=== PATIENT | female | born 1965 | race Caucasian/White ===

== ENCOUNTER 2016-11-02 07:28 | Day surgery (SDC) | payer OTHER ==
[2016-10-29 15:41] VITALS: BMI 31.6
[~2016-11-02 07:28] MED LIST: LACTATED RINGERS 1,000 ML IV SCH
[2016-11-02] MEDS ORDERED: LIDOCAINE 1% 20 ML VIAL (10MG/ML) FOR IV START INTRADERMA ONE (07:41)
[2016-11-02 07:43] VITALS: RESP 18; TEMP 97.7
[2016-11-02] MEDS ORDERED: MIDAZOLAM 2 MG/2 ML VIAL ONE (07:56)
[2016-11-02] MEDS ORDERED: fentaNYL (PF) 50 MCG/ML 2 ML AMP ONE (07:56)
[2016-11-02] MEDS ORDERED: DEXAMETHASONE SOD PHOS (MDV) 100 MG/10 ML VIAL ONE (07:56)
[2016-11-02] MEDS ORDERED: LIDOCAINE 2%-EPI 1:100,000 20 ML VIAL ONE (07:56)
[2016-11-02] MEDS ORDERED: IV FLUID CONTINUATION 1,000 ML IV ONE (09:03)
[2016-11-02 09:09] VITALS: PULSE 74
[2016-11-02 09:23] VITALS: BP 132/91
--- NOTE | 2016-11-02 10:01 | FL ---
Fluoroscopy INDICATION: Pain FINDINGS: Fluoroscopy time: 30 seconds. Images obtained: 7. IMPRESSIONS: 1. Documentation of fluoroscopy.
--- NOTE | 2016-11-02 10:23 | P.PCN ---
Date of Procedure: 11/02/16 Anesthesia: MAC Surgeon: Faisal Spicer Pathology: none sent Condition: stable Disposition: PACU Description of Procedure: PREOPERATIVE DIAGNOSIS: Cervical spondylosis without myelopathy and facet arthropathy. POSTOPERATIVE DIAGNOSIS: Cervical spondylosis without myelopathy and facet arthropathy. PROCEDURES: Radiofrequency thermocoagulation, C4, C5, C6 medial branch, with fluoroscopic guidance, right side. ANESTHESIA: Local with 1% lidocaine; IV sedation with fentanyl and Versed. EBL: Minimal PROCEDURE INDICATION: The patient with neck pain secondary to cervical arthropathy who had more than 50% relief of her pain with previous diagnostic cervical medial branch block. No use of blood thinners. PROCEDURE DESCRIPTION / TECHNIQUE: The patient was seen and identified in the preoperative area. Risks, benefits, complications, and alternatives were discussed with the patient (with risks including but not limited to bleeding, infection, nerve damage, incomplete pain relief, and allergic reactions to medications), the patient agreed to proceed with the procedure and signed the informed consent after all questions were answered. IV was started. Vital signs remained stable throughout the procedure. Patient was taken to the OR and time out was completed. The patient was placed in the prone position on the procedure table. A pillow was placed under the patients chest to increase the cervical interlaminar space. The cervical area was prepped and draped in the usual sterile fashion. Critical pause was taken. Vital signs were closely monitored during the procedure. Conscious sedation was used during the procedure to decrease patients anxiety. Using cross-table lateral fluoroscopy, the centroid of the trapezoid of C3, C4, C5, C6, and C7 were identified, marked, and localized with 1% lidocaine. Subsequently, a 20 gauge 100-mm radiofrequency cannula with a 5-mm active tip was advanced guided by fluoroscopy to the centroid of the trapezoid of C5, C6, and C7. Needle tip position was confirmed at the centroid of the trapezoids of C4, C5, and C6 with anteroposterior fluoroscopy on the right side. Each site then underwent sensory testing at 50 Hz and 0 to 1 volt and motor testing at 2 Hz and 0 to 3 volt with local stimulation, but no radicular symptoms down the arm. Thereafter C4, C5, and C6 sites underwent radiofrequency thermocoagulation at 80 degrees celsius for 90 seconds after injecting 0.5 ml of PF lidocaine 1% . After thermocoagulation, 1 ml of the block solution containing Kenalog 40 mg and 2 mL of preservative-free normal saline was injected at the C4, C5, and C6 levels after negative aspiration of CSF and blood and in the absence of paresthesias. Cannulas were retracted while injecting lidocaine 1% until the needle is out. Skin was cleansed and bandages were applied. COMPLICATIONS: No acute complications. COMMENTS: DISPOSITION / PLANS: The patient was placed in a supine position and transferred to the recovery area in a stable condition for observation and was discharged from the recovery room after meeting discharge criteria. Home discharge instructions given to the patient by the staff. The patient was reexamined prior to discharge. The patient will schedule a follow up in the clinic in 4 weeks to discuss efficacy of procedure and to plan for left-sided injections. I did give her a prescription for [place] 7.5/325 #90 as she noted that Percocet was not helping her at all.
== END 2016-11-02 09:35 | disposition home or self-care (01) ==
LOC: ORPAIN 07:28
PROVIDERS: ATTEND Anesthesiology
DX: G89.29 Other chronic pain (principal); M54.2 Cervicalgia; M47.812 Spondylosis without myelopathy or radiculopathy, cervical region; M46.92 Unspecified inflammatory spondylopathy, cervical region; Z79.891 Long term (current) use of opiate analgesic
CPT/HCPCS: 64633; 64634 ×2; J2250; J3010; J1100

== ENCOUNTER → 2016-11-30 | Outpatient (CLI) | payer OTHER ==
[2016-11-30 12:40] VITALS: BP 125/85; PULSE 95; RESP 18
--- NOTE | 2016-12-01 21:28 | P.PN ---
Subjective This is follow-up visit for this patient with a history of severe and chronic neck pain secondary to cervical spondylosis with facet arthropathy, we have done interventional pain management injection, diagnostic medial branch block cervical area on the right side, and it was successful then later on ,we did radiofrequency ablation of the medial branch cervical area, on the radiofrequency done a few weeks ago patient's report that she had severe neck pain on the right side of her neck and also she had severe left shoulder blade pain, she denies any motor or sensory deficit, she denies any change in the bowel movement or urination, he is able to use her upper extremity without problem, and is currently on pain medications 1-[place] 7.5/325 every 6 hours 2-Zanaflex 2 mg every 12 hours Patient denies any side effects of the medication, denies excessive drowsiness or sleepiness, denies suicidal ideation, and reports that the current pain medication is NOT helping To control the pain and improve activity of daily living Physical Examinations : 1-Constitutiona : Cooperative , not in acute distress . 2-HEENT : nech ; supple , no Lymphadenopathy , no Thyromegaly , normal thyroid size . eyes : no ptosis , no icterus, no photophobia . ENT : normal of hearing , normal oropharynx , no Thrush . 3- Respiratory : Chest clear to auscultations Bilaterally , no wheezing , no Rhonchi . 4- Cardiovascular : regular rate and rhythem , S1 , S2 , no S3 , no S4. 5- Gastrointestinal : abdomen soft no tenderness , bowel sounds positive all four quadrents , no organomegally . 6- Genitourinary : Defferred . 7- neurologic : Cranial nerve II to XII intact , no focal neurological deffecit . 8-psychatric : alert , oriented X 3 , appropriate affect , intact judgment and insight . 9-Lymphatic : no Lymphadenopathy . 10- musculoskeltal : exams of the cervical spine = motor strength normal bilateral upper extremities facet loading test cervical area positive. Multiple trigger point identified in the right sided cervical paravertebral muscles , and on the left shoulder blade area exams of the Lumber spine = motor strength lower extremities ,thigh and legs .5/5 Assessment and plan = Chronic neck pain secondary to cervical spondylosis status post radiofrequency ablation of the right-sided medial branch cervical area , Currently patient complaining of severe neck pain and left shoulder pain mostly myofascial in nature , the current pain medication is not helping To control her pain , patient could benefit from trigger point injection right-sided cervical paravertebral muscles and left shoulder blade area , And I will start patient on baclofen 10 mg twice a day , increase [place] to 10/325 every 6 hours dispensed 90 , [id number] Terry - diagnoses, prognosis, and treatment options including but not limited to physical therapy, surgical interventions, interventional therapies , and medication management including narcotics and adjuvant medication were discussed with the patients ,all The questions answered Objective - Vital Signs Vital signs: Vital Signs Temp Pulse 95 11/30/16 12:35 Resp 18 11/30/16 12:35 BP 125/85 11/30/16 12:35 Pulse Ox 94 L 11/30/16 12:35
== END | disposition home or self-care (01) ==
LOC: PNWHC3 12:27
PROVIDERS: ATTEND Specialist
DX: M47.892 Other spondylosis, cervical region (principal); M46.93 Unspecified inflammatory spondylopathy, cervicothoracic region; Z79.899 Other long term (current) drug therapy
CPT/HCPCS: 99211

== ENCOUNTER 2016-12-03 12:36 | Day surgery (SDC) | payer OTHER ==
[2016-12-01 11:45] VITALS: BMI 34.7
[2016-12-03 13:41] VITALS: RESP 18; TEMP 97.9
[2016-12-03] MEDS ORDERED: LIDOCAINE 1% 20 ML VIAL (10MG/ML) FOR IV START INTRADERMA ONE (13:48)
[2016-12-03] MEDS ORDERED: MIDAZOLAM 2 MG/2 ML VIAL ONE (14:11)
[2016-12-03] MEDS ORDERED: fentaNYL (PF) 50 MCG/ML 2 ML AMP ONE (14:11)
[2016-12-03] MEDS ORDERED: TRIAMCINOLONE ACETONIDE 40 MG/ML 1 ML VIAL ONE (14:11)
[2016-12-03] MEDS ORDERED: BUPIVACAINE (PF) 0.5% 30 ML VIAL ONE (14:11)
--- NOTE | 2016-12-03 14:25 | P.PCN ---
Date of Procedure: 12/03/16 Surgeon: Faisal Spicer Pathology: none sent Condition: stable Disposition: PACU Description of Procedure: PREOPERATIVE DIAGNOSIS: 1-myofascial pain syndrome POSTOPERATIVE DIAGNOSIS: 1-myofascial pain syndrome PROCEDURE 1. Trigger point injections (cervical paraspinal, thoracic paraspinal, rhomboid ) ANESTHESIA: Local with 1% lidocaine; IV sedation with Versed/fentanyl. EBL: Minimal PROCEDURE INDICATION: The patient with myofascial pain in the area of neck, upper back, and shoulder that has not responded to conservative therapy. Patient presents for trigger point injection today; no use of blood thinners. PROCEDURE DESCRIPTION / TECHNIQUE: The patient was seen and identified in the preoperative area. Risks, benefits, complications, and alternatives were discussed with the patient, including but not limited to bleeding, infection, nerve damage, allergic reactions to medications, and incomplete pain relief. The patient agreed to proceed with the procedure and signed the consent after all questions were answered. IV was started, and vital signs were stable. Trigger points were marked prior to entering the procedure room in the places where the patient had severe pain to muscle palpation. Patient was taken to the OR and time out was completed to confirm patient position, procedure, laterality of pain, and allergies. The patient was placed in the prone position on procedure table and a pillow was placed under the abdomen to reduce lumbar lordosis. The area over the relevant muscle (neck, upper back, and right shoulder) was prepped and draped in the usual sterile fashion. Vital signs were closely monitored during the procedure. Conscious sedation was used during the procedure to decrease patients anxiety. Each of the previously marked areas was then infiltrated with 1% plain lidocaine using a 25g 1.5" needle. After this, each point was entered with the same 25g needle and after a catch was felt, dry needling was performed. After negative aspiration at each point, 1 ml of a total of 9 ml (combination of 7 ml 0.5% bupivacaine and 80 mg Kenalog was injected in each area. Needle was withdrawn intact each time, skin was cleansed, and bandages were applied. COMPLICATIONS: None COMMENTS: None DISPOSITION / PLANS: The patient was placed in a supine position and transferred to the recovery area in a stable condition for observation. There was no evidence of lower extremity motor or sensory deficit after the procedure. Patient was discharged from the recovery room after meeting discharge criteria. Home discharge instructions were given to the patient by the staff. The patient was reexamined prior to discharge. The patient will schedule a follow up in the clinic in 4-6 weeks.
[2016-12-03] MEDS ORDERED: IV FLUID CONTINUATION 1,000 ML IV ONE (14:35)
[2016-12-03 14:50] VITALS: BP 134/78; PULSE 78
== END 2016-12-03 15:07 | disposition home or self-care (01) ==
LOC: ORPAIN 12:36
PROVIDERS: ATTEND Anesthesiology
DX: M79.1 Myalgia (principal); M54.2 Cervicalgia; M25.512 Pain in left shoulder; F41.9 Anxiety disorder, unspecified; Z79.891 Long term (current) use of opiate analgesic; Z79.899 Other long term (current) drug therapy
CPT/HCPCS: 20553; J2250; J3301; J3010

== ENCOUNTER → 2016-12-17 | Outpatient (CLI) | payer OTHER ==
--- NOTE | 2016-12-17 15:27 | US ---
EXAMINATION TYPE: US thyroid st tissue head/neck DATE OF EXAM: 12/17/2016 3:09 PM COMPARISON: NONE CLINICAL HISTORY: E04.1 Thyroid nodule. Previous bx of the right nodule at [facility], assess growth, not on meds GLAND SIZE: Right Lobe: 5.5 x 1.5 x 2.4 cm Overall Parenchyma: homogeneous Left Lobe: 5.7 x 1.5 x 2.0 cm Overall Parenchyma: homogeneous Isthmus Thickness: 0.7 cm NODULES RIGHT: # of nodules measured on right: 1 1. 2.2 X 1.9 x 2.2 cm complex solid nodule at the mid pole with well-defined margins; interrupted p eripheral calcification. This nodule is wider than tall and shows intranodular vascularity. Prior size: [employer] here LEFT: # of nodules measured on left: 1 1. 1.2 X 1.0 x 0.9 cm hypoechoic solid nodule at the lower pole with well-defined margins. This nod ule is wider than tall and shows intranodular vascularity. Prior size: [employer] here ISTHMUS: # of nodules measured in the isthmus: 0 Bilateral neck scanned, no abnormal lymphadenopathy noted. Bilateral nodules seen. IMPRESSION: Thyroid nodularity as noted.
== END | disposition home or self-care (01) ==
LOC: RADUSWWP 14:50
PROVIDERS: ATTEND Otolaryngology
DX: E04.2 Nontoxic multinodular goiter (principal)
CPT/HCPCS: 76536

== ENCOUNTER → 2016-12-22 | Outpatient (CLI) | payer OTHER | END | disposition home or self-care (01) | LOC: LABWHC1 15:01 | PROVIDERS: ATTEND Otolaryngology | DX: E06.9 Thyroiditis, unspecified (principal) | CPT/HCPCS: 36415; 82306; 83970; 84439; 84443; 86376 ==

== ENCOUNTER → 2017-01-26 | Outpatient (CLI) | payer OTHER ==
[2017-01-26 12:54] VITALS: BP 142/92; PULSE 100; RESP 18; TEMP 99
--- NOTE | 2017-01-27 12:17 | P.CONS ---
History of Present Illness - Reason for Consult Consult date: 01/26/17 - History of Present Illness This is follow-up visit for this 51 years old female with a chronic history of severe neck pain diagnosed with cervical spondylosis, and cervical herniated disc disease, patient had diagnostic medial branch block which was successful and he tolerated the radiofrequency ablation of the medial branch cervical area , she continues to have severe neck pain, and currently she is complaining of increased numbness and tingling sensation, and also she had left side foot numbness and burning sensation, and also severe numbness and tingling sensation in her right upper extremity, she had no motor or sensory deficit, he had no change in the bowel movements or urination, no fever or night sweats Past Medical History Past Medical History: No Reported History, Osteoarthritis (OA) Additional Past Medical History / Comment(s): mass/cyst on thyroid, bone spurs neck History of Any Multi-Drug Resistant Organisms: None Reported Past Surgical History: Hysterectomy, Orthopedic Surgery Additional Past Surgical History / Comment(s): uterine ablation, colitis, neck surgery 09/2015 for bulging disc., lamenectomy, disc disease lower back, colonoscopy, bladder mesh sling. Thyroid mass removed from the left, pain procedures. Past Anesthesia/Blood Transfusion Reactions: No Reported Reaction Past Psychological History: Anxiety, Depression Smoking Status: Former smoker Past Alcohol Use History: None Reported Past Drug Use History: None Reported - Past Family History Father Family Medical History: Coronary Artery Disease (CAD), Myocardial Infarction ([place] ) Mother Family Medical History: Cancer Additional Family Medical History / Comment(s): Breast CA Medications and Allergies Home Medications Medication Instructions Recorded Confirmed Type DULoxetine HCL [Cymbalta] 60 mg PO HS 08/19/15 01/26/17 History Oxybutynin Chloride [Ditropan XL] 10 mg PO TID 08/19/15 01/26/17 History Ibuprofen [Motrin] 800 mg PO TID PRN 05/08/16 01/26/17 History ARIPiprazole [Abilify] 2 mg PO QAM 07/13/16 01/26/17 History ALPRAZolam [Xanax] 1 mg PO TID 10/05/16 01/26/17 History Methylphenidate HCl [Ritalin] 1 tab PO BID 11/30/16 01/26/17 History Sulfamethoxazole/Trimethoprim 1 tab PO BID 01/26/17 01/26/17 History [Bactrim SS 400-80 mg] Allergies Allergy/AdvReac Type Severity Reaction Status Date / Time No Known Allergies Allergy Verified 01/26/17 12:39 Physical Exam Vitals: Vital Signs Temp Pulse Resp BP 01/26/17 12:45 99 F 100 18 142/92 Physical Examinations : 1-Constitutiona : Cooperative , not in acute distress . 2-HEENT : nech ; supple , no Lymphadenopathy , no Thyromegaly , normal thyroid size . eyes : no ptosis , no icterus, no photophobia . ENT : normal of hearing , normal oropharynx , no Thrush . 3- Respiratory : Chest clear to auscultations Bilaterally , no wheezing , no Rhonchi . 4- Cardiovascular : regular rate and rhythem , S1 , S2 , no S3 , no S4. 5- Gastrointestinal : abdomen soft no tenderness , bowel sounds positive all four quadrents , no organomegally . 6- Genitourinary : Defferred . 7- neurologic : Cranial nerve II to XII intact , no focal neurological deffecit . 8-psychatric : alert , oriented X 3 , appropriate affect , intact judgment and insight . 9-Lymphatic : no Lymphadenopathy . 10- musculoskeltal : exams of the cervical spine = normal motor stregnth in the deltoid and biceps, normal motor stregnth biceps and the wrist extensors (C6) normal motor stregnth in the triceps muscle . deep normal at Brachioradialis , . positive cervical facet loading test . exams of the Lumber spine = normal moter stegnth lower extremities ,thigh and legs .5/5 deep tendon reflexes : normal Knee Jerk , normal ankle Jerk . positive lumber facet Loading Test strait leg raising test positive at 30 degree , RT ,LT , Fabere test positive RT and positive LT . Results Labs: MRI of the cervical spine= right C6 7 herniated disc, C5 6 bulging disc disease and multilevel cervical facet arthropathy. MRI of the lumbar spine = L4-L5 canal stenosis and multi-level facet arthropathy Assessment and Plan Plan: Assessment and plan = - Chronic low back pain secondary to lumbar degenerative disc disease , lumbar spondylosis with facet arthropathy without myelopathy , -Chronic neck pain secondary to cervical herniated disc disease , cervical spondylosis with cervical facet arthropathy without myelopathy . -chronic and current use of high-risk medication (Opioids). -medication refile = I will decrease the dose of [place] from 10/325 to 7.5/325 as per patient's request because she is concerned about addiction/tolerance to opioid l. Patient benefit from baclofen 5 mg 3 times a day, and from Neurontin 200 mg daily at bedtime and 100 mg every morning And patient also given referral for neurosurgery evaluation, for possible surgical intervention on her cervical spine Patient will follow up with the pain clinic in 2-3 months Time with Patient: Less than 30
== END | disposition home or self-care (01) ==
LOC: PNWHC3 12:16
PROVIDERS: ATTEND Specialist
DX: M50.10 Cervical disc disorder with radiculopathy, unspecified cervical region (principal); M47.22 Other spondylosis with radiculopathy, cervical region; M47.816 Spondylosis without myelopathy or radiculopathy, lumbar region; M51.36 Other intervertebral disc degeneration, lumbar region; M46.82 Other specified inflammatory spondylopathies, cervical region; M46.86 Other specified inflammatory spondylopathies, lumbar region
CPT/HCPCS: 99211

== ENCOUNTER → 2017-04-14 | Outpatient (CLI) | payer OTHER ==
[2017-04-14 12:47] VITALS: BP 131/90; PULSE 101; RESP 16; TEMP 98.7
--- NOTE | 2017-04-14 13:13 | P.PN ---
Progress Note - Text Patient returns for followup for chronic neck and back pain with radiation to RUE and LLE, respectively. Patient continues on [place] 7.5 mg po TID for pain with good relief; she got new MRIs and saw Dr. Acosta at [facility] who says she is not a candidate for neck surgery. Patient denies adverse drug effects from medications. Today, pt denies new-onset weakness, bowel/bladder incontinence, or any other signs or symptoms of cauda equina syndrome. There are no signs of acute intoxication, and no indications of medication diversion or overuse. In addition to above, 13-point review of systems is also negative for chest pain , shortness of breath, changes in vision, changes in hearing, new onset weakness , abdominal pain, diarrhea, extreme fatigue, malaise, fever, skin changes, homicidal or suicidal ideation, or bowel or bladder incontinence. Vital Signs: Reviewed in EMR Gen: WDWN, AAOx3, NAD HEENT: NCAT, EOMI, hearing grossly normal Pulm: resp unlabored Abd: soft, NT, ND Neck: supple, trachea midline, well healed scars posteriorly ROM in flexion cervical spine: reduced ROM in extension cervical spine: reduced Cervical paravertebral tenderness: ++ bilateral Cervical Facet tenderness: bilateral Spurling's: negative Facet loading: + bilateral SI joint tenderness: + Conrado's test: neg bilaterally Straight leg raise: neg Lower extremity: decreased ROM dorsiflexion/plantarflexion strength, hip flexion/extension, and knee flexion/extension secondary to pain Neuro: CN II-XII grossly intact, muscle strength lower extremities PRESERVED Imaging: Reviewed in EMR Assessment: 1. postlaminectomy syndrome, lumbar and cervical 2. cervical spondylosis without myelopathy 3. thoracic spondylosis without myelopathy Plan: 1. Explanation: Opioid and psychological risk scores were reviewed. Diagnoses , prognoses, and multiple treatment options including but not limited to physical therapy, interventional therapies, adjuvant medical therapies, narcotic medication therapies, and surgery were discussed with the patient and all questions were answered to the patient's satisfaction. 2. Opioid agreement: Patient has previously signed narcotic agreement, and was orally counseled to not overuse, abuse, divert, or cell medications, and to take them as prescribed by only 1 healthcare provider. The patient was also counseled to store opioid medications in a safe and preferably locked location. Patient was also counseled against driving while using narcotic medications and also to not use alcohol or any illicit or recreational drugs. The patient verbalized understanding that lack of compliance with any of the above and likely result in failure to renew narcotic prescriptions, possible discharge from the clinic, and possible legal ramifications thereafter if indicated. 3. Counseling: The patient was counseled extensively on SMOKING CESSATION, BODY MASS INDEX, EXERCISE. Specifically, the patient was instructed regarding the importance of smoking cessation, obesity, and exercise in the context of both chronic pain and overall health. 4. Procedures: cervical CATALINO ([id number]) 5. Consultations: None 6. Investigations: none 7. Medications: [place] prescribed (7.5 #90) with one refill, UDS today 8. Disposition: f/u for procedure as scheduled PQRS measures: 1-Patient's medications are documented in the chart. 2-Tobacco use is positive, counseling given 3-Patient has had a pneumococcal vaccine. 4-Advanced care planning discussed, patient unable to give. 5-Opioid contract signed with the patient. 6-Pain positive, follow-up visit or procedure scheduled 7-Patient's blood pressure measured and documented, and patient will follow up with the primary care due to hypertension. 8-Patient's weight was measured, and body mass index within the normal limits, and counseling was done. 9-Patient WAS NOT identified as an unhealthy alcohol user.
== END | disposition home or self-care (01) ==
LOC: PNWHC3 12:21
PROVIDERS: ATTEND Anesthesiology
DX: M47.812 Spondylosis without myelopathy or radiculopathy, cervical region (principal); M47.814 Spondylosis without myelopathy or radiculopathy, thoracic region; M96.1 Postlaminectomy syndrome, not elsewhere classified
CPT/HCPCS: 80307; G0480 ×3; G0463; 80346; 80356; 80364; 99211

== ENCOUNTER 2017-05-05 08:04 | Day surgery (SDC) | payer OTHER ==
[2017-04-29 14:38] VITALS: BMI 32.5
[2017-05-05 08:47] VITALS: RESP 18; TEMP 98.3
[2017-05-05] MEDS ORDERED: LIDOCAINE 1% 20 ML VIAL (10MG/ML) FOR IV START INTRADERMA ONE (08:56)
--- NOTE | 2017-05-05 09:30 | P.PCN ---
Date of Procedure: 05/05/17 Preoperative Diagnosis: Postoperative Diagnosis: Procedure(s) Performed: Implants: Surgeon: Faisal Spicer Pathology: none sent Condition: stable Disposition: PACU Indications for Procedure: Operative Findings: Description of Procedure: PREOPERATIVE DIAGNOSIS: Cervical radiculopathy. POSTOPERATIVE DIAGNOSIS: Cervical radiculopathy. PROCEDURE 1. Cervical epidural steroid injection under fluoroscopic guidance, C7-T1 level. 2. Cervical epidurogram. ANESTHESIA: Local anesthesia with 1% lidocaine and IV sedation with versed/ fentanyl. EBL: Minimal PROCEDURE INDICATION: The patient with neck pain and radiculitis with RUE numbness/tingling unresponsive to conservative treatment consents for procedure. No use of blood thinners; PRINCE #1 in series today. PROCEDURE DESCRIPTION / TECHNIQUE: The patient was seen and identified in the preoperative area. Risks, benefits, complications, and alternatives were discussed with the patient (including but not limited to incomplete pain relief, bleeding, infection, nerve damage, and allergies to medications), the patient agreed to proceed with the procedure and signed the consent after all questions were answered. Patient was taken to the OR and time out was completed to verify proper patient , position, laterality of pain, and allergies. Pt was placed in the prone position. A pillow was placed under the patients chest to increase the cervical interlaminar space. The cervical area was prepped and draped in the usual sterile fashion. Critical pause was taken. Vital signs were closely monitored during the procedure. Conscious sedation was used during the procedure to decrease patients anxiety. Using anterior-posterior fluoroscopy, the C7-T1 interlaminar space was identified and the skin over this site was marked and then infiltrated with 1% lidocaine subcutaneously in a paramedian fashion. Subsequently, a 20-gauge 3-1/2 -inch Tuohy epidural needle was inserted and advanced toward the epidural space by means of the loss of resistance technique and guided by AP and lateral fluoroscopy. After negative aspiration for blood or CSF and in the absence of paresthesias, the correct needle position in the epidural space was verified with the injection of 1 mL of the water soluble contrast dye [id number] and observing an excellent epidurogram with the epidural spread of the dye, after negative aspiration for blood and CSF and in the absence of paresthesias. Again after negative aspiration, a 4 ml mixture containing 20 mg of Decadron PF and 2 ml of preservative free Normal Saline solution was injected and a washout of epidurogram was seen. Needle was withdrawn intact, skin was cleansed, and bandages were applied. COMPLICATIONS: None COMMENTS: DISPOSITION / PLANS: The patient was placed in a supine position and transferred to the recovery area in a stable condition for observation. There was no evidence of upper extremity motor or sensory deficit after the procedure. Patient was discharged from the recovery room after meeting discharge criteria. Home discharge instructions were given to the patient by the staff. The patient was reexamined prior to discharge and there were no issues. The patient will schedule a repeat cervical CATALINO in 2-4 weeks.
[2017-05-05] MEDS ORDERED: IV FLUID CONTINUATION 1,000 ML IV ONE (09:35)
--- NOTE | 2017-05-05 09:42 | FL ---
EXAMINATION TYPE: FL guided pain mgmt statistic DATE OF EXAM: 05/05/2017 CLINICAL HISTORY: Neck pain. TECHNIQUE: Fluoroscopy. COMPARISON: None. FINDINGS: Fluoroscopic guidance was provided during pain relief procedure performed by Dr. Spicer . A total of 15 seconds of fluoroscopic time was utilized during the procedure and two spot images are acquired. Images acquired shows needle localization near the cervical thoracic junction without cont rast injection. IMPRESSION: As Above.
[2017-05-05 10:04] VITALS: BP 118/78; PULSE 81
== END 2017-05-05 10:13 | disposition home or self-care (01) ==
LOC: ORPAIN 08:04
PROVIDERS: ATTEND Anesthesiology
DX: G89.29 Other chronic pain (principal); M54.12 Radiculopathy, cervical region; M96.1 Postlaminectomy syndrome, not elsewhere classified; M47.812 Spondylosis without myelopathy or radiculopathy, cervical region; M47.814 Spondylosis without myelopathy or radiculopathy, thoracic region; Z79.891 Long term (current) use of opiate analgesic; Z72.0 Tobacco use
CPT/HCPCS: 62321; 99152; J1100; Q9965

== ENCOUNTER → 2017-06-09 | Outpatient (CLI) | payer OTHER ==
[2017-06-09 12:44] VITALS: BP 131/77; PULSE 93; RESP 16; TEMP 98.3
--- NOTE | 2017-06-10 08:56 | P.PN ---
Subjective This is follow-up visit for this patient with a history of severe and chronic neck pain with radiation to the upper extremity associated with numbness and tingling sensation secondary to cervical degenerative disc diseases , lumbar spondylosis with facet arthropathy, we have done interventional pain management injection,, cervical epidural steroid injections with good result but recently she had urinary tract infection and she has to reschedule her injection, she is currently on 1-[place] 7.5/325 every 6 hours 2-Zanaflex 4 mg every 8 hours 3-Neurontin 100 mg 3 times a day Patient denies any side effects of the medication, denies excessive drowsiness or sleepiness, denies suicidal ideation, and reports that the current pain medication is NOT helping To control the pain and improve activity of daily living Patient denies any motor or sensory deficit , patient denies any fever or night sweats, denies any change in the bowel movements or urination Physical Examinations : 1-Constitutiona : Cooperative , not in acute distress . 2-HEENT : nech ; supple , no Lymphadenopathy , no Thyromegaly , normal thyroid size . eyes : no ptosis , no icterus, no photophobia . ENT : normal of hearing , normal oropharynx , no Thrush . 3- Respiratory : Chest clear to auscultations Bilaterally , no wheezing , no Rhonchi . 4- Cardiovascular : regular rate and rhythem , S1 , S2 , no S3 , no S4. 5- Gastrointestinal : abdomen soft no tenderness , bowel sounds positive all four quadrents , no organomegally . 6- Genitourinary : Defferred . 7- neurologic : Cranial nerve II to XII intact , no focal neurological deffecit . 8-psychatric : alert , oriented X 3 , appropriate affect , intact judgment and insight . 9-Lymphatic : no Lymphadenopathy . 10- musculoskeltal : exams of the cervical spine = motor strength normal bilateral upper extremities facet loading test cervical area positive. exams of the Lumber spine = motor strength lower extremities ,thigh and legs .5/5 Assessment and plan = Chronic neck back pain secondary to cervical degenerative disc disease , cervical spondylosis with facet arthropathy without myelopathy , chronic and current use of high-risk medication (Opioids). The patient was counseled about risk of opioid use, psychological risk associated with opioids and was orally counseled to not overuse , divert,or sell dictations to take medications as prescribed only , and to restore medication in safe location , and the patient counseled against driving while using narcotic medications, and also not to use alcohol or any illicit recreational drugs, the patient's verbalized understanding that the lack of compliance will result in failure to renew narcotic prescription and possible discharge from the clinic - diagnoses, prognosis, and treatment options including but not limited to physical therapy, surgical interventions, interventional therapies , and medication management including narcotics and adjuvant medication were discussed with the patient and all the questions answered Patient will be given prescription refill for [place] 7.5/325 every 6 hours dispense , Zanaflex 4 mg 3 times a day and Neurontin 100 mg 3 times a day Patient will be rescheduled for cervical epidural steroid injections Objective - Vital Signs Vital signs: Vital Signs Temp 98.3 F 06/09/17 12:38 Pulse 93 06/09/17 12:38 Resp 16 06/09/17 12:38 BP 131/77 06/09/17 12:38 Pulse Ox 96 06/09/17 12:38 Intake & Output 06/09/17 06/10/17 06/10/17 18:59 06:59 18:59 Weight 90.718 kg
== END | disposition home or self-care (01) ==
LOC: PNWHC3 11:58
PROVIDERS: ATTEND Specialist
DX: M50.30 Other cervical disc degeneration, unspecified cervical region (principal); M47.812 Spondylosis without myelopathy or radiculopathy, cervical region; M46.82 Other specified inflammatory spondylopathies, cervical region
CPT/HCPCS: 99211

== ENCOUNTER 2017-06-17 11:24 | Day surgery (SDC) | payer OTHER ==
[2017-05-24 11:25] VITALS: BMI 33.3
[2017-06-17 12:21] VITALS: TEMP 98.1
[2017-06-17] MEDS ORDERED: LIDOCAINE 1% 20 ML VIAL (10MG/ML) FOR IV START INTRADERMA ONE (12:40)
--- NOTE | 2017-06-17 13:16 | P.PCN ---
Date of Procedure: 06/17/17 Preoperative Diagnosis: Postoperative Diagnosis: Procedure(s) Performed: . PROCEDURE 1. Cervical epidural steroid injection under fluoroscopic guidance, C7-T1 2. Cervical epidurogram. PREOPERATIVE DIAGNOSIS: 1- Cervical herniated Disc Diseases 2--cervical spondylosis with cervical Facet arthropathy without myelopathy POSTOPERATIVE DIAGNOSIS: : 1- Cervical herniated Disc Diseases , 2- Cervicl spondylosis with cervical Facet arthropathy without myelopathy ANESTHESIA: Local anesthesia with 1% lidocaine and IV sedation with Versed 2 mg and Fentanyl 100 mcg. EBL 0 PROCEDURE INDICATION: The patient with neck pain and radiculitis unresponsive to conservative treatment consents for procedure. PROCEDURE DESCRIPTION / TECHNIQUE: The patient was seen and identified in the preoperative area. Risks, benefits, complications, including but not limited to infections ,bleeding , allergic reactions to the medications ,and not complete pain releife, and alternatives were discussed with the patient, the patient agreed to proceed with the procedure and signed the consent. Patient was taken to the OR and time out was completed. The patient was placed in the prone position on the procedure table. A pillow was placed under the patients chest to increase the cervical interlaminar space. The cervical area was prepped and draped in the usual sterile fashion. Vital signs were closely monitored during the procedure. Conscious sedation was used during the procedure to decrease patients anxiety. Using anterior-posterior fluoroscopy, the C7-T1 interlaminar space was identified and the skin over this site was marked and then infiltrated with 1% lidocaine subcutaneously. Subsequently, a 20-gauge 3-1/2-inch Tuohy epidural needle was inserted and advanced toward the epidural space by means of the `` hanging-drop technique and guided by AP and lateral fluoroscopy. The correct needle position in the epidural space was verified with the injection of 2 mL of the water soluble contrast dye Isovue-180 and observing an excellent epidurogram with the epidural spread of the dye, after negative aspiration for blood and CSF and in the absence of paresthesias. Again after negative aspiration, mixture containing 20 mg Dexamethasone and 2 ml of preservative- free normal saline injected and a washout of epidurogram was seen. Needle was withdrawn intact, skin was cleansed, and bandages were applied. Complications= none. Disposition= patient was placed in supine position and transferred to the recovery room area in stable condition and there was no evidence of upper or lower extremity motor or sensory deficit after the procedure patient was discharged from recovery room after discharge criteria met and home discharge instructions was given by the staff and patient will follow with the pain clinic in 2-4 weeks Implants: Indications for Procedure: Operative Findings: Description of Procedure:
[2017-06-17] MEDS ORDERED: IV FLUID CONTINUATION 1,000 ML IV ONE (13:27)
[2017-06-17 13:31] VITALS: BP 123/77; PULSE 77; RESP 16
--- NOTE | 2017-06-17 13:48 | FL ---
EXAMINATION TYPE: FL guided pain mgmt statistic DATE OF EXAM: 06/17/2017 COMPARISON: NONE HISTORY: Neck pain TECHNIQUE: Fluoroscopy. FINDINGS/IMPRESSION: Fluoroscopic guidance was provided during cervical epidural steroid injection p erformed by Dr. Phan. A total of 7 seconds of fluoroscopic time was utilized during the procedure and 2 spot images was acquired.
== END 2017-06-17 13:47 | disposition home or self-care (01) ==
LOC: ORPAIN 11:24
PROVIDERS: ATTEND Specialist
DX: M50.20 Other cervical disc displacement, unspecified cervical region (principal); M47.812 Spondylosis without myelopathy or radiculopathy, cervical region; M46.92 Unspecified inflammatory spondylopathy, cervical region
CPT/HCPCS: 62321; 99152; J2250; J1100; Q9965; J3010

== ENCOUNTER → 2017-08-04 | Outpatient (CLI) | payer OTHER ==
[2017-08-04 13:52] VITALS: BP 134/93; PULSE 98; RESP 16; TEMP 98.5
--- NOTE | 2017-08-04 14:21 | P.PN ---
Subjective Progress Note Date: 08/04/17 This is follow-up visit for this patient with a history of severe and chronic neck pain diagnosed with cervical degenerative disc disease, cervical spondylosis with facet arthropathy, and failed back surgery syndrome cervical area ,we did interventional pain management injection, radiofrequency ablation of the medial branch cervical area, she is currently complaining of severe neck pain with radiation to the shoulder blade area patient currently on 1-[place] 7.5/325 every 6 hours 2-Zanaflex 4 mg every 8 hours 3-Neurontin 100 mg 3 times a day. 4-Motrin 800 mg 3 times a day. 5-Cymbalta 60 mg daily at bedtime Patient denies any side effects of the medication, denies excessive drowsiness or sleepiness, denies suicidal ideation, and reports that the current pain medication is NOT helping To control the pain and improve activity of daily living . The pain is constant and increases with any activity and interfere with her quality of life and ability to function and work , the dizziness is 8/ 10 increased to 10 over 10 with any activity, Patient denies any motor or sensory deficit, denies change in bowel movement or urination, patient denies any fever or night sweats and patient here for follow-up visit and medication refill Objective - Exam Physical Examinations : 1-Constitutiona : Cooperative , not in acute distress . 2-HEENT : nech ; supple , no Lymphadenopathy , normal thyroid size . eyes : no ptosis , no icterus, no photophobia . ENT : normal of hearing , normal oropharynx , no Thrush . 3- Respiratory : Chest clear to auscultations Bilaterally , no wheezing , no Rhonchi . 4- Cardiovascular : regular rate and rhythem , S1 , S2 , no S3 , no S4. 5- Gastrointestinal : abdomen soft no tenderness , bowel sounds positive all four quadrents , no organomegally . 6- Genitourinary : Defferred . 7- neurologic : Cranial nerve II to XII intact , no focal neurological deffecit . 8-psychatric : alert , oriented X 3 , appropriate affect , intact judgment and insight . 9-Lymphatic : no Lymphadenopathy . 10- musculoskeltal : cervical spine = motor stregnth in the deltoid and biceps, motor stregnth biceps and the wrist extensors (C6) . motor stregnth in the triceps muscle . deep tendon reflexes normal at the biceps , l normal at Brachioradialis normal at the triceps positive cervical facet loading test Multiple trigger point identified in the cervical paravertebral muscles of the right side more than the left. , Lumber spine = normal moter stegnth lower extremities ,thigh and legs .02/19 Assessment and Plan Plan: Assessment and plan= chronic low back pain secondary to cervical degenerative disc disease ,and cervical spondylosis with cervical facet arthropathy , failed back surgery syndrome and cervical area status post radiofrequency ablation of the medial branch cervical area, currently patient having myofascial pain syndrome cervical area chronic and current use of high-risk medication (opioids) Patient denies any side effects of the current pain medication and the current treatment/medication, and the patient to do activity of daily living , Diagnoses, prognosis, treatment options, including but not limited to physical therapy, medication management, interventional therapies, and surgery, were discussed with the patient All the questions answered Patient signed the narcotic agreement, and he was orally counseled, not to overuse, not to abuse, not to Divert , not tp sell pain medication, and to take it as prescribed only, Patient was counseled not to drive or operate heavy equipment while using narcotic medication, and advised not to use alcohol or any Illicit drugs while using the narcotis, the patient's verbalized understanding that lack of compliance with any of the above instructions and will likely to cause discharge from the pain service, not to renew his narcotic prescriptions Medication managements= patient will be given prescription refills for 1-discontinue [place], start patient on Percocet 7.5/325 every 6 hours 2-Neurontin 100 mg 3 times a day dispense 90 3-Zanaflex 4 mg every 8 hours dispense 90 4-Motrin 800 mg when necessary , patient taking Cymbalta prescription from the primary care 60 mg daily Interventional pain managemet = patient could benefit from trigger point injections cervical area Follow-up= 2 months UDS was done today
== END ==
LOC: PNWHC3 12:43
PROVIDERS: ATTEND Specialist
DX: M50.30 Other cervical disc degeneration, unspecified cervical region (principal); M47.812 Spondylosis without myelopathy or radiculopathy, cervical region; M46.82 Other specified inflammatory spondylopathies, cervical region; Z79.891 Long term (current) use of opiate analgesic; Z79.899 Other long term (current) drug therapy
CPT/HCPCS: 80307 ×2; G0480 ×2; G0463; 80346; 80364; 99211

== ENCOUNTER 2017-08-23 09:54 | Day surgery (SDC) | payer OTHER ==
[2017-08-17 14:57] VITALS: BMI 33.3
[2017-08-23 10:28] VITALS: RESP 16; TEMP 98.3
[2017-08-23] MEDS ORDERED: LIDOCAINE 1% 20 ML VIAL (10MG/ML) FOR IV START INTRADERMA ONE (10:32)
[2017-08-23 11:54] VITALS: BP 118/80; PULSE 88
[2017-08-23] MEDS ORDERED: IV FLUID CONTINUATION 1,000 ML IV ONE (12:08)
--- NOTE | 2017-08-23 22:05 | P.PCN ---
Date of Procedure: 08/23/17 Procedure(s) Performed: Preoperative diagnoses= 1-myofascial pain syndrome cervical thoracic and lumbar area. 2-cervical degenerative disc disease 3-cervical spondylosis Postoperative diagnoses= same as preoperative diagnosis. Procedure= Trigger point injections cervical 2 left cervical paravertebral muscles, 1 thoracic paravertebral muscles on the right side , and 2 in the lumbar paravertebral muscles on the Left side Anesthesia= conscious sedation with Versed 2 mg and fentanyl 100 micrograms and local infiltration with lidocaine 1% 4 ml Estimated blood loss=minimal. Procedure indication= the patient had a history of severe chronic neck mid back and low back pain diagnosed with myofascial pain syndrome unresponsive to conservative treatment. Procedure description= the patient was seen and identified in the preoperative holding area, risks and benefits and alternative of the procedure and possible complications discussed with the patient, and he agreed with the preceding, patient signed the consent, an IV was started, and vital signs were monitored and were stable throughout the procedure, patient was placed in the sitting position , procedure table , cervical thoracic and lumbosacral area was prepped and draped with a sterile fashion, vital signs were closely monitored during the procedure, then each trigger point injected with Marcaine 0.5% 2 mL using 25 -gauge needle, injections done after negative aspiration and there was no paresthesia during the injection , total of 5 trigger points injected, 2 on the left sided cervical paravertebral muscles 1 in the thoracic paravertebral muscle on the right side and 2 on the left side lumbar paravertebral muscles Patient tolerated the procedure well without any complication, The patient returned to supine position after the back was cleaned and a Band- Aid applied, the patient transported to recovery room in stable condition and he was monitored for 30 minutes before he was discharged home and then patient was reexamined before going home and patient was discharged in stable condition and patient will follow up with the pain clinic in a few weeks
== END 2017-08-23 12:33 | disposition home or self-care (01) ==
LOC: ORPAIN 09:54
PROVIDERS: ATTEND Specialist
DX: G89.29 Other chronic pain (principal); M79.1 Myalgia; M50.30 Other cervical disc degeneration, unspecified cervical region; M47.812 Spondylosis without myelopathy or radiculopathy, cervical region
CPT/HCPCS: 20553; J2250; J3301; J3010; 99152

== ENCOUNTER → 2017-09-13 | Outpatient (CLI) | payer OTHER ==
--- NOTE | 2017-09-13 11:24 | MM ---
Reason for exam: screening (asymptomatic). Last mammogram was performed 1 year and 1 month ago. History: Patient is postmenopausal. Benign ultrasound-guided core biopsy of the left breast, 2012. Benign cyst aspiration of both breasts, 2011. Physical Findings: A clinical breast exam by your physician is recommended on an annual basis and results should be correlated with mammographic findings. MG 3D Screening Mammo W/Cad Bilateral CC and MLO view(s) were taken. Prior study comparison: July 30, 2016, bilateral MG 3d diag mammo w/cad [facility]. April 12, 2015, mammogram, performed at [facility]. There are scattered fibroglandular densities. Finding: There is a stable 7 mm circumscribed lobulated mass located 4 cm from the nipple in the lower inner quadrant, anterior position of the right breast. Previous mammotome biopsy in the left breast. Focal asymmetry in the right breast, stable. No significant changes in finding since July 30, 2016 and April 12, 2015. ASSESSMENT: Benign, BI-RAD 2 RECOMMENDATION: Routine screening mammogram of both breasts in 1 year.
== END | disposition home or self-care (01) ==
LOC: RADMAMWWP 06:51
PROVIDERS: ATTEND Family Medicine
DX: Z12.31 Encounter for screening mammogram for malignant neoplasm of breast (principal)
CPT/HCPCS: 77063; G0202

== ENCOUNTER → 2017-11-23 | Outpatient (CLI) | payer OTHER ==
[2017-11-23 12:36] VITALS: BP 138/95; PULSE 102; RESP 18
--- NOTE | 2017-11-23 12:56 | P.PN ---
Progress Note - Text Progress Note Date: 11/23/17 This is a 52-year-old female with history of lumbar postlaminectomy pain syndrome and myofascial pain especially in the midthoracic area. The patient had trigger point injection previously which did help her significantly with her pain. She takes Percocet 7.5 mg over it does not help her as [place] used to and she wants to switch back to her [place] at this point. By physical exam she is alert oriented 3 no apparent distress she has tenderness in the thoracic paravertebral area bilaterally. She has well-healed scar from her previous lumbar surgery. I will schedule the patient to have trigger point injection in the thoracic paravertebral area and I will give her prescription for 2 months of [place] 7.5 mg 3 times a day with a total of 90 pills per month.
== END | disposition home or self-care (01) ==
LOC: PNWHC3 12:12
PROVIDERS: ATTEND Anesthesiology
DX: G89.29 Other chronic pain (principal); M96.1 Postlaminectomy syndrome, not elsewhere classified; M54.6 Pain in thoracic spine; M79.1 Myalgia; Z79.891 Long term (current) use of opiate analgesic; Z98.890 Other specified postprocedural states
CPT/HCPCS: 99211

== ENCOUNTER 2017-12-22 09:36 | Day surgery (SDC) | payer OTHER ==
[2017-12-20 11:54] VITALS: BMI 33.3
[~2017-12-22 09:36] MED LIST changes: +LACTATED RINGERS 1,000 ML IV ONE; -LACTATED RINGERS 1,000 ML IV SCH
[2017-12-22 10:26] VITALS: TEMP 97.6
[2017-12-22] MEDS ORDERED: IV FLUID CONTINUATION 1,000 ML IV ONE (10:49)
--- NOTE | 2017-12-22 10:55 | P.PCN ---
Date of Procedure: 12/22/17 Procedure(s) Performed: Preoperative diagnoses= 1-myofascial pain syndrome cervical and thoracic area. Postoperative diagnoses= same as preoperative diagnosis. Procedure= trigger point injections and cervical paravertebral muscles and thoracic paravertebral muscles ( total of 9 pounds injected ) 3 on the right side cervical paravertebral muscles, 3 on the right side thoracic paravertebral muscles , and 3 on the left side thoracic paravertebral muscles. Anesthesia= none. Estimated blood loss=none Procedure indication= the patient had a history of severe chronic upper back pain, and neck pain, diagnosed with myofascial pain syndrome unresponsive to conservative treatment., And she is here today to have trigger point injections Procedure description= the patient was seen and identified in the preoperative holding area, risks and benefits and alternative of the procedure and possible complications discussed with the patient, and he agreed with the preceding, patient signed the consent,, and vital signs were monitored and were stable throughout the procedure, patient was placed in the sitting position or table and the cervical and thoracic area was prepped and draped with a sterile fashion, vital signs were closely monitored during the procedures , and each of the trigger point that was marked in the preoperative holding area each one of them injected with a 2 ml of the mixture of Marcaine 0.5% 18 mL mixed with 40 mg of Kenalog, using 25-gauge needle, each of the trigger points mentioned above injected with 2 mg of the mixture after negative aspiration for heme or CSF and there was no paresthesia during the injection Patient tolerated the procedure well without any complication, The patient returned to supine position after the back was cleaned and a Band- Aid applied, the patient transported to recovery room in stable condition and he was monitored for 30 minutes before he was discharged home and then patient was reexamined before going home and patient was discharged in stable condition and patient will follow up with the pain clinic in a few weeks
[2017-12-22 10:59] VITALS: RESP 18
[2017-12-22 11:10] VITALS: BP 122/86; PULSE 89
== END 2017-12-22 11:30 | disposition home or self-care (01) ==
LOC: ORPAIN 09:36
PROVIDERS: ATTEND Specialist
DX: G89.29 Other chronic pain (principal); M79.1 Myalgia; M54.89 Other dorsalgia; M54.2 Cervicalgia
CPT/HCPCS: 20553; J3301

== ENCOUNTER → 2018-01-18 | Outpatient (CLI) | payer OTHER ==
[2018-01-18 12:18] VITALS: BP 129/93; PULSE 89; RESP 16; TEMP 98.7
--- NOTE | 2018-01-18 13:27 | P.PN ---
Subjective Progress Note Date: 01/18/18 This is 53 years old female with a chronic history of severe neck pain and mid back pain, diagnosed with cervical spondylosis, myofascial pain syndrome cervical and thoracic area, we have done radiofrequency ablation of the medial branch cervical area, and recently we have done trigger point injection for the thoracic and cervical area, patient continued to have severe localized mid back pain, pain is constant and increases with any activity, she tried physical therapy without any benefit, trigger point injection no benefit, she is using TENS unit without any benefit, she denies any motor or sensory deficit in the upper or lower extremities, she denies any fever or night sweats, she denies any change in bowel movement or urination, the intensity of the pain interfering with her quality of life and activity of daily livings, intensity of the pain is 7/10, and is not controlled with the pain medication, she continued to use the medication [place] 7.5/325 every 8 hours, Motrin 800 mg 3 times a day, Zanaflex 4 mg 3 times a day, Neurontin 1 mg 3 times a day Objective - Vital Signs Vital signs: Vital Signs Temp 98.7 F 01/18/18 12:11 Pulse 89 01/18/18 12:11 Resp 16 01/18/18 12:11 BP 129/93 01/18/18 12:11 Pulse Ox Intake & Output 01/17/18 01/18/18 01/18/18 18:59 06:59 18:59 Weight 90.718 kg - Exam Physical Examinations : 1-Constitutiona : Cooperative , not in acute distress . 2-HEENT : nech ; supple , no Lymphadenopathy , normal thyroid size . eyes : no ptosis , no icterus, no photophobia . ENT : normal of hearing , normal oropharynx , no Thrush . 3- Respiratory : Chest clear to auscultations Bilaterally , no wheezing , no Rhonchi . 4- Cardiovascular : regular rate and rhythem , S1 , S2 , no S3 , no S4. 5- Gastrointestinal : abdomen soft no tenderness , bowel sounds positive all four quadrents , no organomegally . 6- Genitourinary : Defferred . 7- neurologic : Cranial nerve II to XII intact , no focal neurological deffecit . 8-psychatric : alert , oriented X 3 , appropriate affect , intact judgment and insight . 9-Lymphatic : no Lymphadenopathy . 10- musculoskeltal : cervical spine = motor stregnth in the deltoid and biceps, motor stregnth biceps and the wrist extensors (C6) . motor stregnth in the triceps muscle . deep tendon reflexes normal at the biceps , normal at Brachioradialis , normal at the Triceps positive cervical facet loading test . Thoracic spine= positive facet loading test mid and lower thoracic area, torso rotation associated with severe pain , flexion and hyperextension of the thoracic spine associated with severe pain Lumber spine = normal moter stegnth lower extremities ,thigh and legs .02/19 Assessment and Plan Plan: Assessment and plan= chronic neck pain secondary to cervical spondylosis, improved after radiofrequency Mid back pain secondary to thoracic spondylosis, myofascial pain syndrome thoracic and cervical area chronic and current use of high-risk medication (opioids) Patient denies any side effects of the current pain medication and the current treatment/medication ML and the patient to do activity of daily living , Diagnoses, prognosis, treatment options, including but not limited to physical therapy, medication management, interventional therapies, and surgery, were discussed with the patient All the questions answered Patient signed the narcotic agreement, and he was orally counseled, not to overuse, not to abuse, not to Divert , not tp sell pain medication, and to take it as prescribed only, Patient was counseled not to drive or operate heavy equipment while using narcotic medication, and advised not to use alcohol or any Illicit drugs while using the narcotis, the patient's verbalized understanding that lack of compliance with any of the above instructions and will likely to cause discharge from the pain service, not to renew his narcotic prescriptions Medication managements= patient will be given prescription refills for [place] 7.5/325 every, dispense 90, Motrin 800 mg every 8 hours dispense 90, Zanaflex 4 mg every 8 hours dispense 90, discontinue Neurontin patient had no benefit from it, we'll order MRI of the thoracic spine to evaluate the etiology patient symptoms goes with discogenic component versus facetogenic component, ,
== END | disposition home or self-care (01) ==
LOC: PNWHC3 11:57
PROVIDERS: ATTEND Specialist
DX: G89.29 Other chronic pain (principal); M54.9 Dorsalgia, unspecified; M47.812 Spondylosis without myelopathy or radiculopathy, cervical region; M47.814 Spondylosis without myelopathy or radiculopathy, thoracic region; M79.1 Myalgia; Z79.1 Long term (current) use of non-steroidal anti-inflammatories (NSAID); Z79.891 Long term (current) use of opiate analgesic; Z79.899 Other long term (current) drug therapy
CPT/HCPCS: 99211

== ENCOUNTER → 2018-02-15 | Outpatient (CLI) | payer MEDICARE, OTHER ==
[2018-02-15 14:29] VITALS: BP 127/96; PULSE 96; RESP 16
--- NOTE | 2018-02-15 19:48 | P.PAINPG ---
Subjective Progress Note Date: 02/15/18 This is 53 years old female with a chronic history of severe neck pain and mid back pain, diagnosed with cervical spondylosis, myofascial pain syndrome cervical and thoracic area, we have done radiofrequency ablation of the medial branch cervical area, and recently we have done trigger point injection for the thoracic and cervical area, patient continued to have severe localized mid back pain, pain is constant and increases with any activity, she tried physical therapy without any benefit, trigger point injection no benefit, she is using TENS unit without any benefit, she denies any motor or sensory deficit in the upper or lower extremities, she denies any fever or night sweats, she denies any change in bowel movement or urination, the intensity of the pain interfering with her quality of life and activity of daily livings, intensity of the pain is 7/10, and is not controlled with the pain medication, she continued to use the medication Brick 7.5/325 every 8 hours, Motrin 800 mg 3 times a day, Zanaflex 4 mg 3 times a day, Neurontin 1 mg 3 times a day Objective - Vital Signs Vital signs: Vital Signs Temp Pulse 96 02/15/18 14:22 Resp 16 02/15/18 14:22 BP 127/96 02/15/18 14:22 Pulse Ox Intake & Output 02/15/18 02/15/18 02/16/18 06:59 18:59 06:59 Weight 90.718 kg - Exam Physical Examinations : 1-Constitutiona : Cooperative , not in acute distress . 2-HEENT : nech ; supple , no Lymphadenopathy , normal thyroid size . eyes : no ptosis , no icterus, no photophobia . ENT : normal of hearing , normal oropharynx , no Thrush . 3- Respiratory : Chest clear to auscultations Bilaterally , no wheezing , no Rhonchi . 4- Cardiovascular : regular rate and rhythem , S1 , S2 , no S3 , no S4. 5- Gastrointestinal : abdomen soft no tenderness , bowel sounds positive all four quadrents , no organomegally . 6- Genitourinary : Defferred . 7- neurologic : Cranial nerve II to XII intact , no focal neurological deffecit . 8-psychatric : alert , oriented X 3 , appropriate affect , intact judgment and insight . 9-Lymphatic : no Lymphadenopathy . 10- musculoskeltal : cervical spine = motor stregnth in the deltoid and biceps, motor stregnth biceps and the wrist extensors (C6) . motor stregnth in the triceps muscle . deep tendon reflexes normal at the biceps , normal at Brachioradialis , normal at the Triceps positive cervical facet loading test . Thoracic spine= positive facet loading test thoracic area Flexion extension of the torso associated with severe pain , Lumber spine = normal moter stegnth lower extremities ,thigh and legs .5/5 Assessment and Plan Plan: Assessment and plan= cervical and thoracic spondylosis Cervical and thoracic myofascial pain syndrome, Chronic pain syndrome, Chronic and current use of high-risk medication( opioid ) Patient was given prescription to have MRI of the thoracic spine, the thoracic spine MRI will be done next few days Patient given prescription refill for Neurontin 100 mg twice a day dispense 60, Brick 7.5/325 every 8 hours dispense 90, Zanaflex 4 mg every 8 hours dispense 90, and she will be seen in the pain clinic the next 3 weeks, PQRS Measure Charge Sheet Measure #130: Documentation of Current Meds in Medical Chart: Patient's medications documented in chart Measure #226: Tobacco Use: Screen & Cessation Intervention: Pt screened for tobacco use AND intervention given Measure #111: Pneumonia Vaccination: Pneumococcal vaccine NOT administered or previously given Measure #47: Advance Care Plan: Advance care planning discussed & documented, plan or surrogate given Measure #412: Opioid Treatment Agreement: Documented signed opioid trtmnt agreemnt min once during opioid trtmnt Measure #408: Opioid Therapy Follow-up Evaluation: Patient had f/u eval minimum every 3 months during opioid therapy Measure #317: Preventitive Care & Scrn High Bld Press & F/U: Normal blood pressure, f/u not required Measure #128: Body Mass Index (BMI) Screening & Follow-up: BMI documented ABOVE normal parameters - f/u documented Measure #131: Pain Assessment & Follow-up: Pain positive & plan documented, Follow-up scheduled Measure #431: Unhealthy Alcohol Use Preventative Care & Scrn: Patient not identified as an unhealthy alcohol user PQRS Narrative: Smoking Status Current every day smoker Do You Want the Pneumonia Vaccine Up to Date Vaccine AT THIS TIME? Narcotic Agreement Date Signed 05/18/16 Blood Pressure 127/96 Pain Intensity [Upper Back] 8 Scale Used Numeric (1 - 10) Hx Alcohol Use (MH) No Home Medications: Ambulatory Orders ALPRAZolam [Xanax] 1 mg PO TID 10/05/16 Methylphenidate HCl [Ritalin] 10 mg PO DAILY 11/30/16 Tolterodine Tartrate [Detrol LA] 4 mg PO DAILY 05/24/17 tiZANidine HCL [Zanaflex] 4 mg PO Q8HR PRN #90 tab 01/18/18 Gabapentin [Neurontin] 100 mg PO BID #60 cap 02/15/18 HYDROcodone/APAP 7.5-325MG [Brick 7.5-325] 1 tab PO Q8HR PRN #90 tab 02/15/18 Ibuprofen [Motrin] 800 mg PO TID PRN #90 tab 02/15/18 Controlled Substance Measures - Controlled Substance Measures Is patient prescribed a controlled substance at discharge?: Yes If prescribed controlled substance>3 days was MAPS reviewed?: Yes When asked, does pt state using other controlled substances?: No
== END | disposition home or self-care (01) ==
LOC: PNWHC3 13:32
PROVIDERS: ATTEND Specialist
DX: G89.4 Chronic pain syndrome (principal); M54.2 Cervicalgia; M47.813 Spondylosis without myelopathy or radiculopathy, cervicothoracic region; M79.1 Myalgia; F11.20 Opioid dependence, uncomplicated; F17.200 Nicotine dependence, unspecified, uncomplicated; Z79.1 Long term (current) use of non-steroidal anti-inflammatories (NSAID); Z79.899 Other long term (current) drug therapy
CPT/HCPCS: 99211

== ENCOUNTER → 2018-02-21 | Outpatient (CLI) | payer MEDICARE, OTHER ==
--- NOTE | 2018-02-22 01:18 | MR ---
EXAMINATION TYPE: MR thoracic spine wo/w con DATE OF EXAM: 02/21/2018 COMPARISON: 06/20/2016 HISTORY: Back pain prior surgery, Gadavist 10ml CONTRAST: Standard multiplanar, multisequence MRI departmental protocol utilizing 10 mL intravenous Gadavist ga dolinium contrast. FINDINGS: The thoracic vertebra have normal alignment. There is slight narrowing of the disc spaces. There is no thoracic spinal stenosis. There is a mild relative spinal stenosis at C6-7 of 8 mm due to developmentally small canal and a small posterior disc bulge. There is small posterior disc bulge at T6-7 T7-8 without compromise of the spinal canal. There is no thoracic paraspinal mass. Posterior el ements are intact. I see no significant neural foraminal impingement. There is appears to be some sub tle thinning of the mid thoracic spinal cord on the T2 sagittal images. There is also small linear ar ea of increased signal within the cord at the T4 level on the T2 images. There is no expansion. The c ontrast images show no pathologic enhancement. IMPRESSION: Minimal posterior disc bulging as above. No spinal stenosis in the thoracic spine. There is a minimal relative spinal stenosis at C6-7. There is subtle thinning of the thoracic spinal cord at the T4 T5 T6 level and possible small syrinx on the sagittal images. This is not evident on the axial images. This appearance could relate to nons pecific myelomalacia. The appearance is similar to old exam. There is no evidence of any underlying c ord mass.
== END | disposition home or self-care (01) ==
LOC: RADMRIMAIN 20:49
PROVIDERS: ATTEND Specialist
DX: M51.24 Other intervertebral disc displacement, thoracic region (principal); G95.89 Other specified diseases of spinal cord
CPT/HCPCS: 72157; A9581

== ENCOUNTER → 2018-03-15 | Outpatient (CLI) | payer MEDICARE, OTHER ==
[2018-03-15 13:22] VITALS: BP 124/89; PULSE 96; RESP 16
--- NOTE | 2018-03-15 13:55 | P.PAINPG ---
Subjective Progress Note Date: 03/15/18 Principal diagnosis: Myofascial pain syndrome This is a 52-year-old old with a history of previous lumbar spine surgery who complains today of mid thoracic as well as cervical pain. She denies radicular symptoms. She denies bowel or bladder dysfunction. She has undergone physical therapy in the past prior to her surgery. She has not done this recently. She is undergone trigger point injections in the past and reports these were helpful. She reports taking her medications as prescribed in that these help with her pain. She does feel like she has plateaued with the use of her Macy. Objective - Vital Signs Vital signs: Vital Signs Temp Pulse 96 03/15/18 13:15 Resp 16 03/15/18 13:15 BP 124/89 03/15/18 13:15 Pulse Ox 92 L 03/15/18 13:15 Intake & Output 03/14/18 03/15/18 03/15/18 18:59 06:59 18:59 Weight 86.183 kg - Exam General: The patient is alert and oriented. Patient is not sedateded Patient is a question appropriately. Cardiac: Heart is regular in rate and rhythm Respiratory: Clear to auscultation. No audible wheezes. Abdomen: Soft nontender nondistended. Lower extremities: Strength is normal bilaterally. Sensation is normal bilaterally. Reflexes are preserved and symmetric bilaterally. Straight leg raise is negative bilaterally. She has trigger points present in her thoracic and cervical spine bilaterally. These are most palpable at the bilateral trapezius and bilateral rhomboid muscles Assessment and Plan Assessment: Plan of Care 1. Medications: I will refill the patient's Macy, Zanaflex and Neurontin today. I have reviewed the patient's MAPS report and it reveals expected results. Patient has signed an opiate agreement as well as opiate consent for treatment in our clinic. They understand the risks and benefits of opiate medications. They are aware of the potential for addiction. She did sign the [place] start talking form today. 2. Interventions: We will schedule the patient for trigger point injections in the bilateral trapezius and bilateral rhomboid muscles. This will be done without any sedation. I discussed this with the patient. 3. Referrals: Patient will be referred to physical therapy 4. Testing: None 5. Psychological: Denies significant anxiety or depression. (1) Myofascial pain syndrome Current Visit: Yes Status: Acute Code(s): M79.1 - MYALGIA SNOMED Code(s): 151614810 PQRS Measure Charge Sheet Measure #130: Documentation of Current Meds in Medical Chart: Patient's medications documented in chart Measure #226: Tobacco Use: Screen & Cessation Intervention: Pt not a tobacco user Measure #111: Pneumonia Vaccination: Pneumococcal vaccine administered or previously received Measure #47: Advance Care Plan: Advance care planning discussed & documented, pt chose/unable to give Measure #412: Opioid Treatment Agreement: Documented signed opioid trtmnt agreemnt min once during opioid trtmnt Measure #408: Opioid Therapy Follow-up Evaluation: Patient had f/u eval minimum every 3 months during opioid therapy Measure #317: Preventitive Care & Scrn High Bld Press & F/U: Normal blood pressure, f/u not required Measure #128: Body Mass Index (BMI) Screening & Follow-up: BMI documented ABOVE normal parameters - f/u documented Measure #131: Pain Assessment & Follow-up: Pain positive & plan documented Measure #431: Unhealthy Alcohol Use Preventative Care & Scrn: Patient identified as unhealthy alcohol user; counseling given PQRS Narrative: Smoking Status Current every day smoker Do You Want the Pneumonia Vaccine Up to Date Vaccine AT THIS TIME? Narcotic Agreement Date Signed 05/18/16 Blood Pressure 124/89 Pain Intensity [Bilateral 8 Upper Back] Scale Used Numeric (1 - 10) Hx Alcohol Use (MH) No Home Medications: Ambulatory Orders Tolterodine Tartrate [Detrol LA] 4 mg PO DAILY 05/24/17 Ibuprofen [Motrin] 800 mg PO TID PRN #90 tab 02/15/18 Gabapentin [Neurontin] 100 mg PO BID #60 cap 03/15/18 HYDROcodone/APAP 7.5-325MG [Macy 7.5-325] 1 tab PO Q8HR PRN #90 tab 03/15/18 tiZANidine HCL [Zanaflex] 4 mg PO Q8HR PRN #90 tab 03/15/18 Controlled Substance Measures - Controlled Substance Measures Is patient prescribed a controlled substance at discharge?: Yes When asked, does pt state using other controlled substances?: No If prescribed controlled substance>3 days was MAPS reviewed?: Yes If Rx opioid, was Start Talking consent form obtained?: Yes If opioid is for acute pain is fill amount 7 days or less?: Yes Was information provided regarding opioid addiction?: Yes
== END | disposition home or self-care (01) ==
LOC: PNWHC3 12:30
PROVIDERS: ATTEND Pain Medicine Pain Medicine
DX: M79.1 Myalgia (principal); F17.200 Nicotine dependence, unspecified, uncomplicated; Z79.899 Other long term (current) drug therapy; Z79.1 Long term (current) use of non-steroidal anti-inflammatories (NSAID); Z79.891 Long term (current) use of opiate analgesic
CPT/HCPCS: 99211

== ENCOUNTER → 2018-04-26 | Day surgery (SDC) | payer MEDICARE, OTHER ==
[2018-04-25 08:12] VITALS: BMI 31.6
[~2018-04-26] MED LIST changes: -LACTATED RINGERS 1,000 ML IV ONE; +LACTATED RINGERS 1,000 ML IV SCH
[2018-04-26 06:48] VITALS: TEMP 98.9
--- NOTE | 2018-04-26 07:21 | P.PCN ---
Date of Procedure: 04/26/18 Procedure(s) Performed: Preoperative diagnoses= 1-myofascial pain syndrome upper back area Postoperative diagnoses= same as preoperative diagnosis. Procedure= trigger point injections in bilateral trapezius muscles and rhomboids muscles (total of 5 trigger points injected , 3 on the right side and 2 on the left ) Anesthesia= none. Estimated blood loss=minimal. Procedure indication= the patient had a history of severe chronic upper back pain, diagnosed with depression phase syndrome, unresponsive to conservative treatment, and she is here today to have trigger points injection. Procedure description= the patient was seen and identified in the preoperative holding area, risks and benefits and alternative of the procedure and possible complications discussed with the patient, and he agreed with the preceding, patient signed the consent, and vital signs were monitored and were stable throughout the procedure, patient was placed in the sitting position or table and the cervical and thoracic area was prepped and draped with a sterile fashion, vital signs were closely monitored during the procedure, and each of the trigger point which was marked in the preop holding area 3 on the right side and the location of the trapezius muscles on the right and the rhomboid muscles on the right side and also told trigger points on the left side at the trapezius muscles and the rhomboid muscles each one of the trigger point injected with 2 mL of the mixture of ropivacaine 0.5% 10 ML and 40 mg of Kenalog , injection done after negative aspiration and using 25-gauge needle, the needle removed,Patient tolerated the procedure well without any complication, The patient returned to supine position after the back was cleaned and a Band- Aid applied, the patient transported to recovery room in stable condition and he was monitored for 30 minutes before he was discharged home and then patient was reexamined before going home and patient was discharged in stable condition and patient will follow up with the pain clinic in a few weeks
[2018-04-26 07:28] VITALS: BP 120/89; PULSE 89; RESP 18
== END ==
LOC: ORPAIN 06:32
PROVIDERS: ATTEND Specialist
DX: G89.29 Other chronic pain (principal); M79.1 Myalgia
CPT/HCPCS: 20553; J3301

== ENCOUNTER → 2018-05-10 | Outpatient (CLI) | payer MEDICARE, OTHER ==
[2018-05-10 12:16] VITALS: BP 137/88; PULSE 109; RESP 16
--- NOTE | 2018-05-10 12:26 | P.PN ---
Subjective Progress Note Date: 05/10/18 i This is a 52-year-old female with neck pain and mid back pain and lower back pain. The patient had cervical fusion and lumbar laminectomy. She has pain in the middle of her back in the midthoracic area for which she had trigger point injection which helped her pain moderately. She still feels pain in her neck that goes down the shoulders however she denies any pain in the extremities or any weakness nor any paresthesia. She does have urinary incontinence due to a neurologic problems and not to back issues. The patient still takes Manor 7.5 mg 3 times a day and Neurontin intermittently 100 mg once to twice a day. n addition to above, 13-point review of systems is also negative for chest pain , shortness of breath, changes in vision, changes in hearing, new onset weakness , abdominal pain, diarrhea, extreme fatigue, malaise, fever, skin changes, homicidal or suicidal ideation, or bowel or bladder incontinence. Vital Signs: Reviewed in EMR Gen: AAOx3, NAD Pulm: resp unlabored,CTA Neck: supple, trachea midline She has tenderness in the cervical paravertebral area bilaterally and also in the trapezius muscles bilaterally. Tenderness in the spinous processes of the middle thoracic vertebra. Neuro exam of the lower extremities showed normal and symmetrical muscle strength and knee reflexes however she has decreased ankle reflexes symmetrically. Straight leg raise: Neuro: CN II-XII grossly intact, m Imaging: Reviewed in EMR Assessment: Cervical and lumbar postlaminectomy pain syndrome Thoracic spondylosis without myelopathy Myofascial pain Plan: 1. Explanation: Opioid and psychological risk scores were reviewed. Diagnoses , prognoses, and multiple treatment options including but not limited to physical therapy, interventional therapies, adjuvant medical therapies, narcotic medication therapies, and surgery were discussed with the patient and all questions were answered to the patient's satisfaction. 2. Opioid agreement: Patient has previously signed narcotic agreement, and was orally counseled to not overuse, abuse, divert, or cell medications, and to take them as prescribed by only 1 healthcare provider. The patient was also counseled to store opioid medications in a safe and preferably locked location. Patient was also counseled against driving or operating heavy equipment while using narcotic medications and also to not use alcohol or any illicit or recreational drugs. The patient verbalized understanding that lack of compliance with any of the above and likely result in failure to renew narcotic prescriptions, possible discharge from the clinic, and possible legal ramifications thereafter if indicated. 3. Counseling: The patient was counseled extensively on SMOKING CESSATION, BODY MASS INDEX, EXERCISE. Specifically, the patient was instructed regarding the importance of smoking cessation, obesity, and exercise in the context of both chronic pain and overall health. 4. Procedures: None at this point 5. Consultations: None 6. Investigations: None at this point 7. Medications: Manor 7.5 mg prescription will be given for 2 months along with his Zanaflex 4 mg 3 times a day and I will increase her Neurontin 200 mg 3 times a day. We might need to go up further on the Neurontin dose in the future however she does not use it on a regular basis that she states at this point. 8. Disposition: Follow up in the clinic clinic in 8 weeks Objective - Vital Signs Vital signs: Vital Signs Temp Pulse 109 H 05/10/18 12:06 Resp 16 05/10/18 12:06 BP 137/88 05/10/18 12:06 Pulse Ox 96 05/10/18 12:06 Intake & Output 05/09/18 05/10/18 05/10/18 18:59 06:59 18:59 Weight 86.183 kg
== END | disposition home or self-care (01) ==
LOC: PNWHC3 11:45
PROVIDERS: ATTEND Anesthesiology
DX: M47.814 Spondylosis without myelopathy or radiculopathy, thoracic region (principal); M96.1 Postlaminectomy syndrome, not elsewhere classified; M79.1 Myalgia; Z79.891 Long term (current) use of opiate analgesic; Z79.899 Other long term (current) drug therapy
CPT/HCPCS: 99211

== ENCOUNTER → 2018-07-05 | Outpatient (CLI) | payer MEDICARE, OTHER ==
[2018-07-05 14:18] VITALS: BP 115/84; PULSE 93; RESP 16
--- NOTE | 2018-07-08 07:35 | P.PAINPG ---
Subjective Progress Note Date: 07/06/18 This is 52 years old female with a chronic history of severe neck pain and mid back pain, she was diagnosed with cervical spondylosis ,myofascial pain syndrome and cervical and thoracic area, and we've done a different frequency ablation of the medial branch cervical area, and trigger point injection , she had a good pain relief from it, but the pain came back and she is currently complaining of severe neck pain and upper back pain and mid back pain, she denies any motor or sensory deficits, she denies any tingling or numbness sensation, and she denies any radiation of the pain, she denies any fever or night sweats, and she is currently on Douglas 7.5/325 every 8 hours Neurontin 100 mg twice a day and Motrin 800 mg 3 times a day when necessary and Zanaflex 4 mg 3 times a day, she denies any side effects of the medication she denies any fever or night sweats she denies any suicidal ideation, as she reported the current medication helping her to control her pain Objective - Vital Signs Vital signs: Vital Signs Temp Pulse 93 07/05/18 14:11 Resp 16 07/05/18 14:11 BP 115/84 07/05/18 14:11 Pulse Ox 96 07/05/18 14:11 Intake & Output 07/05/18 07/06/18 07/06/18 18:59 06:59 18:59 Weight 88.451 kg - Exam Physical Examinations : 1-Constitutiona : Cooperative , not in acute distress . 2-HEENT : nech ; supple , no Lymphadenopathy , normal thyroid size . eyes : no ptosis , no icterus , no photophobia . ENT : normal of hearing , normal oropharynx , no Thrush . 3- Respiratory : Chest clear to auscultations Bilaterally , no wheezing , no Rhonchi . 4- Cardiovascular : regular rate and rhythem , S1 , S2 , no S3 , no S4. 5- Gastrointestinal : abdomen soft no tenderness , bowel sounds , no organomegally . 6- Genitourinary : Defferred . 7- neurologic : Cranial nerve II to XII intact , no focal neurological deffecit . 8-psychatric : alert , oriented X 3 , appropriate affect , intact judgment and insight . 9-Lymphatic : no Lymphadenopathy . 10- musculoskeltal : Cervical Spine motor stregnth in the deltoid and biceps, normal right side , normal Left side motor stregnth biceps and the wrist extensors normal right side ,normal left side . motor stregnth in the triceps muscle . normal Right side , normal Left side deep tendon reflexes normal at the biceps , normal at Brachioradialis , normal at triceps. positive cervcal triggerpoints in the trapezius muscles and suprascapular muscles and rhomboid muscles, and thoracic paravertebral muscles Lumber spine moter stegnth lower extremities ,thigh and legs 5/5 Right side , 5/5 Left side Assessment and Plan Plan: Assessment and plan= chronic severe neck pain and upper mid back pain secondary to cervical spondylosis , and myofascial pain syndrome chronic and current use of high-risk medication (opioids) Patient denies any side effects of the current pain medication and the current treatment/medication helping the patient to do activity of daily living , Diagnoses, prognosis, treatment options, including but not limited to physical therapy, medication management, interventional therapies, and surgery, were discussed with the patient All the questions answered The narcotic consent was signed and patient agreed and understood the side effects and complications of opioid treatment. Patient signed the narcotic agreement, and was orally counseled, not to overuse, not to abuse, not to Divert , not tp sell pain medication, and to take it as prescribed only, Patient was counseled not to drive or operate heavy equipment while using narcotic medication, and advised not to use alcohol or any Illicit drugs while using the narcotis, understanding that lack of compliance with any of the above instructions, will likely to cause discharge from, the pain service, not to renew his narcotic prescriptions MAPS Reviwed and it was apropriate . Medication managements= patient will be given prescription refills for Douglas 7.5/325 dispense 90 with 1 refill, and Neurontin 100 mg twice a day dispense 60 with one refill, Zanaflex 4 mg every 8 hours dispense 90 with 1 refill Motrin 800 mg 3 times a day dispense 90 with 1 refill Patient could benefit from physical therapy prescription for physical therapy evaluation and myofascial release was given to the patient, and patient could benefit from trigger point injection , PQRS Measure Charge Sheet Measure #130: Documentation of Current Meds in Medical Chart: Patient's medications documented in chart Measure #226: Tobacco Use: Screen & Cessation Intervention: Pt screened for tobacco use AND intervention given Measure #111: Pneumonia Vaccination: Pneumococcal vaccine NOT administered or previously given Measure #47: Advance Care Plan: Advance care planning discussed & documented, pt chose/unable to give Measure #412: Opioid Treatment Agreement: Documented signed opioid trtmnt agreemnt min once during opioid trtmnt Measure #408: Opioid Therapy Follow-up Evaluation: Patient had f/u eval minimum every 3 months during opioid therapy Measure #317: Preventitive Care & Scrn High Bld Press & F/U: Normal blood pressure, f/u not required Measure #128: Body Mass Index (BMI) Screening & Follow-up: BMI documented ABOVE normal parameters - f/u documented Measure #131: Pain Assessment & Follow-up: Pain positive & plan documented, Follow-up scheduled Measure #431: Unhealthy Alcohol Use Preventative Care & Scrn: Patient not identified as an unhealthy alcohol user PQRS Narrative: Smoking Status Current every day smoker Do You Want the Pneumonia Yes Vaccine AT THIS TIME? Narcotic Agreement Date Signed 05/18/16 Blood Pressure 115/84 Pain Intensity [Bilateral Back 4 ] Scale Used Numeric (1 - 10) Hx Alcohol Use (MH) No Home Medications: Ambulatory Orders Tolterodine Tartrate [Detrol LA] 4 mg PO DAILY 05/24/17 Gabapentin [Neurontin] 100 mg PO BID #60 cap 07/05/18 HYDROcodone/APAP 7.5-325MG [Douglas 7.5-325] 1 tab PO Q8HR PRN #90 tab 07/05/18 HYDROcodone/APAP 7.5-325MG [Douglas 7.5-325] 1 tab PO Q8HR PRN 30 Days #90 tab Ibuprofen [Motrin] 800 mg PO TID PRN #90 tab 07/05/18 tiZANidine HCL [Zanaflex] 4 mg PO Q8HR PRN #90 tab 07/05/18 Controlled Substance Measures - Controlled Substance Measures Is patient prescribed a controlled substance at discharge?: Yes When asked, does pt state using other controlled substances?: No If prescribed controlled substance>3 days was MAPS reviewed?: Yes If Rx opioid, was Start Talking consent form obtained?: Yes If opioid is for acute pain is fill amount 7 days or less?: No Was information provided regarding opioid addiction?: Yes
== END | disposition home or self-care (01) ==
LOC: PNWHC3 12:43
PROVIDERS: ATTEND Specialist
DX: G89.29 Other chronic pain (principal); M47.812 Spondylosis without myelopathy or radiculopathy, cervical region; M79.1 Myalgia; M54.6 Pain in thoracic spine; F17.200 Nicotine dependence, unspecified, uncomplicated; Z79.899 Other long term (current) drug therapy; Z79.891 Long term (current) use of opiate analgesic; Z79.1 Long term (current) use of non-steroidal anti-inflammatories (NSAID)
CPT/HCPCS: 99211

== ENCOUNTER 2018-07-25 08:03 | Day surgery (SDC) | payer MEDICARE, OTHER ==
[2018-07-25 08:49] VITALS: RESP 16; TEMP 98.2
--- NOTE | 2018-07-25 09:35 | P.PCN ---
Date of Procedure: 07/25/18 Surgeon: Brenda Gillespie Description of Procedure: Date of Procedure: 07/25/18 Anesthesia: local Pathology: none sent Condition: stable Disposition: PACU Description of Procedure: The patient was seen in the preop holding area consent was obtained then she was brought into the procedure room and placed in prone position. The trigger points were marked at the skin level and skin and then was prepped with ChloraPrep and draped in a sterile manner. I then used 25-gauge 1-1/2 inch needle to go through the skin and into the trapezius and rhomboid muscles on the right side and the thoracic paravertebral musculature on the right side. A solution of 20 mg of Kenalog +7 MLS of ropivacaine 0.5% was prepared and 1 mL of the solution was injected at each target point was a total of 8 points were injected. Patient tolerated procedure well.
[2018-07-25 09:45] VITALS: PULSE 95
[2018-07-25 10:03] VITALS: BP 118/76
== END 2018-07-25 10:13 | disposition home or self-care (01) ==
LOC: ORPAIN 08:03
PROVIDERS: ATTEND Anesthesiology
DX: M79.18 Myalgia, other site (principal)
CPT/HCPCS: 20553; J3301

== ENCOUNTER → 2018-08-30 | Outpatient (CLI) | payer MEDICARE, OTHER ==
[2018-08-30 12:02] VITALS: BP 130/98; PULSE 117; RESP 19
--- NOTE | 2018-08-30 12:54 | P.PN ---
Subjective Progress Note Date: 08/30/18 This is 52 years old female with a chronic history of severe neck pain and mid back pain, she was diagnosed with cervical spondylosis ,myofascial pain syndrome and cervical and thoracic area, and we've done Radiofrequency frequency ablation of the medial branch cervical area, and trigger point injection , she had a good pain relief from it, but the pain came back and she is currently complaining of severe neck pain and upper back pain and mid back pain, she denies any motor or sensory deficits, she denies any tingling or numbness sensation, and she denies any radiation of the pain, she denies any fever or night sweats, and she is currently on Trezevant 7.5/325 every 8 hours Neurontin 100 mg twice a day and Motrin 800 mg 3 times a day when necessary and Zanaflex 4 mg 3 times a day, she denies any side effects of the medication she denies any fever or night sweats she denies any suicidal ideation, as she reported the current medication helping her to control her neck pain and low back pain, but she is currently having episode of C. diff and she is having severe abdominal cramping and severe pain which is not controlled with Bentyle , and she is getting metronidazole to treat C. diff, she feels that the pelvic and abdominal pain is severe is not controlled with the current pain medication Physical Examinations : 1-Constitutiona : Cooperative , not in acute distress . 2-HEENT : nech ; supple , no Lymphadenopathy , normal thyroid size . eyes : no ptosis , no icterus , no photophobia . ENT : normal of hearing , normal oropharynx , no Thrush . 3- Respiratory : Chest clear to auscultations Bilaterally , no wheezing , no Rhonchi . 4- Cardiovascular : regular rate and rhythem , S1 , S2 , no S3 , no S4. 5- Gastrointestinal : abdomen soft no tenderness , bowel sounds , no organomegally . 6- Genitourinary : Defferred . 7- neurologic : Cranial nerve II to XII intact , no focal neurological deffecit . 8-psychatric : alert , oriented X 3 , appropriate affect , intact judgment and insight . 9-Lymphatic : no Lymphadenopathy . 10- musculoskeltal : Cervical Spine motor stregnth in the deltoid and biceps, normal right side , normal Left side motor stregnth biceps and the wrist extensors normal right side ,normal left side . motor stregnth in the triceps muscle . normal Right side , normal Left side deep tendon reflexes normal at the biceps , normal at Brachioradialis , normal at triceps. positive cervcal triggerpoints in the trapezius muscles and suprascapular muscles and rhomboid muscles, and thoracic paravertebral muscles Lumber spine moter stegnth lower extremities ,thigh and legs 5/5 Right side , 5/5 Left side Assessment and Plan Plan: Assessment and plan= chronic severe neck pain and upper mid back pain secondary to cervical spondylosis , and myofascial pain syndrome chronic and current use of high-risk medication (opioids) Patient denies any side effects of the current pain medication and the current treatment/medication helping the patient to do activity of daily living , Diagnoses, prognosis, treatment options, including but not limited to physical therapy, medication management, interventional therapies, and surgery, were discussed with the patient All the questions answered The narcotic consent was signed and patient agreed and understood the side effects and complications of opioid treatment. Patient signed the narcotic agreement, and was orally counseled, not to overuse, not to abuse, not to Divert , not tp sell pain medication, and to take it as prescribed only, Patient was counseled not to drive or operate heavy equipment while using narcotic medication, and advised not to use alcohol or any Illicit drugs while using the narcotis, understanding that lack of compliance with any of the above instructions, will likely to cause discharge from, the pain service, not to renew his narcotic prescriptions MAPS Reviwed and it was apropriate . Medication managements= I will increase Trezevant to 10/325 every 8 hours dispense 90 (no refile ) Months we'll decrease it back to 7.5/325, and Neurontin 100 mg twice a day dispense 60 with one refill, Zanaflex 4 mg every 8 hours dispense 90 with 1 refill Motrin 800 mg 3 times a day dispense 90 with 1 refill Patient could benefit from radiofrequency ablation of the medial branch cervical area and also from trigger point injections cervical and thoracic , PQRS Measure Charge Sheet Measure #130: Documentation of Current Meds in Medical Chart: Patient's medications documented in chart Measure #226: Tobacco Use: Screen & Cessation Intervention: Pt screened for tobacco use AND intervention given Measure #111: Pneumonia Vaccination: Pneumococcal vaccine NOT administered or previously given Measure #47: Advance Care Plan: Advance care planning discussed & documented, pt chose/unable to give Measure #412: Opioid Treatment Agreement: Documented signed opioid trtmnt agreemnt min once during opioid trtmnt Measure #408: Opioid Therapy Follow-up Evaluation: Patient had f/u eval minimum every 3 months during opioid therapy Measure #317: Preventitive Care & Scrn High Bld Press & F/U: Normal blood pressure, f/u not required Measure #128: Body Mass Index (BMI) Screening & Follow-up: BMI documented ABOVE normal parameters - f/u documented Measure #131: Pain Assessment & Follow-up: Pain positive & plan documented, Follow-up scheduled Measure #431: Unhealthy Alcohol Use Preventative Care & Scrn: Patient not identified as an unhealthy alcohol user PQRS Narrative: Objective - Vital Signs Vital signs: Vital Signs Temp Pulse 117 H 08/30/18 11:54 Resp 19 08/30/18 11:54 BP 130/98 08/30/18 11:54 Pulse Ox 97 08/30/18 11:54 Intake & Output 08/29/18 08/30/18 08/30/18 18:59 06:59 18:59 Weight 92.986 kg
== END | disposition home or self-care (01) ==
LOC: PNWHC3 11:32
PROVIDERS: ATTEND Specialist
DX: G89.29 Other chronic pain (principal); M47.812 Spondylosis without myelopathy or radiculopathy, cervical region; M79.18 Myalgia, other site; M54.6 Pain in thoracic spine; Z79.891 Long term (current) use of opiate analgesic; Z79.899 Other long term (current) drug therapy; Z79.1 Long term (current) use of non-steroidal anti-inflammatories (NSAID)
CPT/HCPCS: 99211

== ENCOUNTER → 2018-09-27 | Outpatient (CLI) | payer MEDICARE, OTHER ==
[2018-09-27 14:12] VITALS: BP 123/87; PULSE 108; RESP 18
--- NOTE | 2018-09-27 14:42 | P.PN ---
Subjective Progress Note Date: 09/27/18 This is a 52-year-old female with history of neck pain with radiation to the right upper arm. The patient denies any weakness in the upper extremities or any bowel or bladder dysfunction. Her neck pain has been getting worse with short-lived response to trigger point injection in the cervical paravertebral area. The patient had good results after cervical medial branch block for levels C5 6 and 7 previously and she would like to have that done on the right side as soon as possible. Today, pt denies new-onset weakness, bowel/bladder incontinence, or any other signs or symptoms of cauda equina syndrome. There are no signs of acute intoxication, and no indications of medication diversion or overuse. In addition to above, 13-point review of systems is also negative for chest pain , shortness of breath, changes in vision, changes in hearing, new onset weakness , abdominal pain, diarrhea, extreme fatigue, malaise, fever, skin changes, homicidal or suicidal ideation, or bowel or bladder incontinence. Vital Signs: Reviewed in EMR Gen: AAOx3, NAD HEENT: PERRLA,hearing grossly normal Pulm: resp unlabored,CTA Heart:S1,S2, No Mur Neck: supple, trachea midline Neuro exam of the upper extremities: Normal and symmetrical deep tendon reflexes and normal and symmetrical muscle strength. S Tenderness in the paravertebral musculature: Positive on the right side of her cervical spine and in the right trapezius muscle Neuro: CN II-XII grossly intact, Imaging: Reviewed in EMR/chart Assessment: Cervical spondylosis without myelopathy Status post cervical fusion Opioid dependence Plan: 1. Explanation: Opioid and psychological risk scores were reviewed. Diagnoses , prognoses, and multiple treatment options including but not limited to physical therapy, interventional therapies, adjuvant medical therapies, narcotic medication therapies, and surgery were discussed with the patient and all questions were answered to the patient's satisfaction. 2. Opioid agreement: Signed with the patient and the patient is warned not to use opioids while driving or before driving and not to combine opioids with benzodiazepines or alcohol. 3. Counseling: The patient was counseled extensively on SMOKING CESSATION, BODY MASS INDEX, EXERCISE. Specifically, the patient was instructed regarding the importance of smoking cessation, obesity, and exercise in the context of both chronic pain and overall health. 4. Procedures: Schedule for right cervical medial branch RFA for the medial branches of C5, C6, and C7 under fluoroscopic guidance 5. Consultations: None 6. Investigations: None 7. Medications: [place] 7.5 mg 3 times a day and Neurontin 100 mg 3 times a day 8. Disposition: Return to the above-mentioned procedure 9. Maps were reviewed and were appropriate. PQRS measures: 1-Patient's medications are documented in the chart. 2-Tobacco use is popsitive, counseling given 3-Patient has had a pneumococcal vaccine. 4-Advanced care planning discussed, patient unable to give 5-Opioid contract signed with the patient. 6-Pain positive, follow-up visit or procedure scheduled 7-Patient's blood pressure measured and documented within normal limits. 8-Patient's weight was measured, and body mass index ABOVE the normal limits, and counseling was done. Patient instructed to follow up with PCP. 9-Patient WAS NOT identified as an unhealthy alcohol user. Objective - Vital Signs Vital signs: Vital Signs Temp Pulse 108 H 09/27/18 13:57 Resp 18 09/27/18 13:57 BP 123/87 09/27/18 13:57 Pulse Ox 98 09/27/18 13:57 Intake & Output 09/26/18 09/27/18 09/27/18 18:59 06:59 18:59 Weight 92.986 kg
== END | disposition home or self-care (01) ==
LOC: PNWHC3 13:32
PROVIDERS: ATTEND Anesthesiology
DX: M47.12 Other spondylosis with myelopathy, cervical region (principal); F11.20 Opioid dependence, uncomplicated; Z98.1 Arthrodesis status; Z79.899 Other long term (current) drug therapy
CPT/HCPCS: 99211

== ENCOUNTER 2018-11-08 09:48 | Day surgery (SDC) | payer MEDICARE, OTHER ==
[2018-11-04 13:29] VITALS: BMI 31.6
[~2018-11-08 09:48] MED LIST changes: -LACTATED RINGERS 1,000 ML IV SCH; +SODIUM CHLORIDE 0.9% 500 ML 500 ML IV SCH
[2018-11-08 10:13] VITALS: RESP 16; TEMP 97.5
[2018-11-08] MEDS ORDERED: LACTATED RINGERS 1,000 ML IV ONE (10:16)
[2018-11-08] MEDS ORDERED: LIDOCAINE 1% 20 ML VIAL (10MG/ML) FOR IV START INTRADERMA ONE (10:17)
--- NOTE | 2018-11-08 11:08 | P.PCN ---
Date of Procedure: 11/08/18 Procedure(s) Performed: PREOPERATIVE DIAGNOSIS: Cervical spondylosis with Facet Arthropathy without myelopathy. POSTOPERATIVE DIAGNOSIS: Cervical spondylosis with Facet Arthropathy without myelopathy. PROCEDURES: Radiofrequency thermocoagulation, Right C4-5 , C5-6 , C6-7 medial branch with Fluroscopy Guidence ( 3 Leveles ) ANESTHESIA: Local with Ropivacaine 0.5 % , moderate sedation with fentanyl 200 micrograms and Versed.2 mg EBL: Minimal PROCEDURE INDICATION: The patient with neck pain secondary to cervical arthropathy who had more than 50% relief of her pain with previous diagnostic cervical medial branch block. PROCEDURE DESCRIPTION / TECHNIQUE: The patient was seen and identified in the preoperative area. Risks, benefits, complications, and alternatives were discussed with the patient, the patient agreed to proceed with the procedure and signed the consent. IV was started. Vital signs remained stable throughout the procedure. Patient was taken to the OR and time out was completed. The patient was placed in the prone position on the procedure table. A pillow was placed under the patients chest to increase the cervical interlaminar space. The cervical area was prepped and draped in the usual sterile fashion. Critical pause was taken. Vital signs were closely monitored during the procedure. Conscious sedation was used during the procedure to decrease patients anxiety. Using cross-table lateral fluoroscopy, the centroid of the trapezoid of right C4, C5, and C6 were identified, marked, and localized with 1% lidocaine. Subsequently, a 20 [id number] radiofrequency cannula with a 10-mm active tip was advanced guided by fluoroscopy to the centroid of the trapezoid of right C4, C5, and C6 . Needle tip position was confirmed at the centroid of the trapezoids of right C4, C5, and C6 with anteroposterior fluoroscopy. Each site then underwent sensory testing at 50 Hz and 0 to 1 volt and motor testing at 2 Hz and 0 to 3 volt with local stimulation, but no radicular symptoms down the arm. Thereafter right C4,C5 and C6 sites underwent radiofrequency thermocoagulation at 80 degrees celsius for 90 seconds after injecting 0.5 ml of PF Ropivacaine 0.5 %. After thermocoagulation, 1 ml of the block solution containing depo-medrol 40 mg and 5 mL of preservative-free normal saline was injected at the right C4, C5, and C6 levels after negative aspiration of CSF and blood and with no paresthesias. Cannulas were retracted while injecting lidocaine 1% until the needle is out. Skin was cleansed and bandages were applied. COMPLICATIONS: No acute complications. DISPOSITION / PLANS: The patient was placed in a supine position and transferred to the recovery area in a stable condition for observation and was discharged from the recovery room after meeting discharge criteria. Home discharge instructions given to the patient by the staff. The patient was reexamined prior to discharge. The patient will schedule a follow up in the clinic in 2-4 weeks.
[2018-11-08] MEDS ORDERED: IV FLUID CONTINUATION 1,000 ML IV ONE (11:13)
[2018-11-08 11:34] VITALS: BP 117/79; PULSE 83
--- NOTE | 2018-11-08 11:59 | FL ---
EXAMINATION TYPE: FL guided pain mgmt statistic DATE OF EXAM: 11/08/2018 CLINICAL HISTORY: Neck pain. TECHNIQUE: Fluoroscopy. COMPARISON: None. FINDINGS: Fluoroscopic guidance was provided during pain relief procedure performed by Dr. Phan . A total of 13 seconds of fluoroscopic time was utilized during the procedure and 3 spot images are acquired. Images acquired shows needle localization from posterior approach off the midline in the mid to lower cervical spine. IMPRESSION: As Above.
== END 2018-11-08 11:50 | disposition home or self-care (01) ==
LOC: ORPAIN 09:48
PROVIDERS: ATTEND Specialist
DX: M47.812 Spondylosis without myelopathy or radiculopathy, cervical region (principal)
CPT/HCPCS: 64633; 64634 ×2; J2250; J1030; J3010; 99152; 99153

== ENCOUNTER → 2018-11-22 | Outpatient (CLI) | payer MEDICARE, OTHER ==
[2018-11-22 12:46] VITALS: BP 122/85; PULSE 89; RESP 18
--- NOTE | 2018-11-22 21:25 | P.PN ---
Subjective Progress Note Date: 11/22/18 This is 53 years old female with a chronic history of severe neck pain and mid back pain, she was diagnosed with cervical spondylosis ,myofascial pain syndrome and cervical and thoracic area,recentley we have done Radiofrequency frequency ablation of the Right medial branch cervical area,C4-5, C5-6 ,C6-7 , she denies any motor or sensory deficits, she denies any tingling or numbness sensation, and she denies any radiation of the pain, she denies any fever or night sweats, and she is currently on [place] 7.5/325 every 8 hours Neurontin 100 mg twice a day and Motrin 800 mg 3 times a day when necessary and Zanaflex 4 mg 3 times a day, she denies any side effects of the medication she denies any fever or night sweats she denies any suicidal ideation, as she reported the current medication helping her to control her neck pain . Physical Examinations : 1-Constitutiona : Cooperative , not in acute distress . 2-HEENT : nech ; supple , no Lymphadenopathy , normal thyroid size . eyes : no ptosis , no icterus, no photophobia . 3- neurologic : Cranial nerve II to XII intact , no focal neurological deffecit . 4-psychatric : alert , oriented X 3 , appropriate affect , intact judgment and insight . 5-Lymphatic : no Lymphadenopathy . 6- musculoskeltal : Cervical Spine motor stregnth in the deltoid and biceps, normal right side , normal Left side Assessment and plan= chronic severe neck pain and upper mid back pain secondary to cervical spondylosis . Pain improved after the radiofrequency ablation of the medial branch cervical area or right side chronic and current use of high-risk medication (opioids) Patient denies any side effects of the current pain medication and the current treatment/medication helping the patient to do activity of daily living , Diagnoses, prognosis, treatment options, including but not limited to physical therapy, medication management, interventional therapies, and surgery, were discussed with the patient All the questions answered The narcotic consent was signed and patient agreed and understood the side effects and complications of opioid treatment. Patient signed the narcotic agreement, and was orally counseled, not to overuse, not to abuse, not to Divert , not tp sell pain medication, and to take it as prescribed only, Patient was counseled not to drive or operate heavy equipment while using narcotic medication, and advised not to use alcohol or any Illicit drugs while using the narcotis, understanding that lack of compliance with any of the above instructions, will likely to cause discharge from, the pain service, not to renew his narcotic prescriptions MAPS Reviwed and it was apropriate . Medication managements= I will increase [place] to 10/325 every 8 hours dispense 90 , one refill , and Zanaflex 4 mg every 8 hours dispense 90 with 1 refill , and Neurontin 100 mg daily and it will be stopped next month, recommend discontinue Motrin Patient will follow up in the pain clinic in 2 months, he should quit smoking 2 weeks ago , PQRS Measure Charge Sheet Measure #130: Documentation of Current Meds in Medical Chart: Patient's medications documented in chart Measure #226: Tobacco Use: Screen & Cessation Intervention: Pt screened for tobacco and she quit smoking 2 weeks ago Measure #111: Pneumonia Vaccination: Pneumococcal vaccine NOT administered or previously given Measure #47: Advance Care Plan: Advance care planning discussed & documented, pt chose/unable to give Measure #412: Opioid Treatment Agreement: Documented signed opioid trtmnt agreemnt min once during opioid trtmnt Measure #408: Opioid Therapy Follow-up Evaluation: Patient had f/u eval minimum every 3 months during opioid therapy Measure #317: Preventitive Care & Scrn High Bld Press & F/U: Normal blood pressure, f/u not required Measure #128: Body Mass Index (BMI) Screening & Follow-up: BMI documented ABOVE normal parameters - f/u documented Measure #131: Pain Assessment & Follow-up: Pain positive & plan documented, Follow-up scheduled Measure #431: Unhealthy Alcohol Use Preventative Care & Scrn: Patient not identified as an unhealthy alcohol user PQRS Narrative: Objective - Vital Signs Vital signs: Vital Signs Temp Pulse 89 11/22/18 12:41 Resp 18 11/22/18 12:41 BP 122/85 11/22/18 12:41 Pulse Ox 100 11/22/18 12:41 Intake & Output 11/22/18 11/22/18 11/23/18 06:59 18:59 06:59 Weight 91.172 kg
== END ==
LOC: PNWHC3 11:47
PROVIDERS: ATTEND Specialist
DX: G89.29 Other chronic pain (principal); M47.812 Spondylosis without myelopathy or radiculopathy, cervical region; Z79.891 Long term (current) use of opiate analgesic; Z79.899 Other long term (current) drug therapy
CPT/HCPCS: 99211

== ENCOUNTER → 2019-01-17 | Outpatient (CLI) | payer MEDICARE, OTHER ==
[2019-01-17 12:55] VITALS: BP 132/96; PULSE 83; RESP 18
--- NOTE | 2019-01-17 13:36 | P.PAINPG ---
Subjective Progress Note Date: 01/17/19 Mrs. Mcdonough is a 53-year-old female presents today with chief complaint of neck and back pain. She has a chronic history of neck pain has had radiofrequency ablation with excellent relief of her neck pain. She reports over the last month she's had persistent numbness and tingling down her arms into her medial 2 fingers bilaterally. She reports she has some manager field strength weakness which is new. She denies any bowel or bladder incontinence She reports that this is unrelated to the procedure and has never had this before. She also has a chronic history of low back pain which is significantly improved at the ablations and pain medications. She has been weaned off of Neurontin now because she felt it was not really helping her. She also has stopped taking ibuprofen. She has a history of neck surgery about 3 years ago has not had any recent imaging. She currently is using [place] as needed and denies any side effects from the medications Objective - Vital Signs Vital signs: Vital Signs Temp Pulse 83 01/17/19 12:48 Resp 18 01/17/19 12:48 BP 132/96 01/17/19 12:48 Pulse Ox 94 L 01/17/19 12:48 Intake & Output 01/16/19 01/17/19 01/17/19 18:59 06:59 18:59 Weight 90.718 kg - Exam General: Awake and alert oriented 3 no distress Respiratory exam: No audible wheezing no accessory muscle usage Cardiovascular exam: regular rate, palpable bilateral pulses, no lower extremity edema Abdominal exam: No distention nontender to palpation Cervical spine: Normal alignment, Spurling's positive bilateral. Calin's is negative and manager field weakness is evident. There is weakness in the lumbricals Lumbar spine: Loss of lumbar lordosis, normal alignment, tender to palpation over bilateral paraspinal muscles, facet loading is positive bilaterally. Straight leg raise is negative. Sacroiliac joints: Nontender to palpation, ALRFEDO is negative, Ga[place]elon negative Neuro exam: Normal sensation in bilateral upper extremities, deep tendon reflex es are 1 + bilateral upper extremities. Normal sensation in bilateral lower extremities. Deep tendon reflexes are 2+ in lower extremities Psych exam: Cooperative, appropriate mood Assessment and Plan Assessment: #1 cervical radiculopathy #2 cervical spondylosis without myelopathy #3 lumbar spondylosis without myelopathy #4 chronic opioid dependence Plan: After discussion with the patient and examination the patient I believe that ordered an MRI of the cervical spine is warranted as she had surgical intervention the past with new onset weakness as well as radiculopathy. I advised her to continue staying off the Neurontin as well as the Mobic. We'll continue the [place] as needed. We will order an MRI of the C-spine to be done as soon as possible. We'll follow-up the patient soon as that MRI is completed. Advise if she has any bowel or bladder incontinence or weakness in her lower sternum she should present to the emergency room. I refill her medications for 2 months time after checking her maps and appropriate documentation. PQRS Measure Charge Sheet Measure #130: Documentation of Current Meds in Medical Chart: Patient's medications documented in chart Measure #226: Tobacco Use: Screen & Cessation Intervention: Pt not a tobacco user Measure #111: Pneumonia Vaccination: Pneumococcal vaccine administered or previously received Measure #47: Advance Care Plan: Advance care planning discussed & documented, pt chose/unable to give Measure #412: Opioid Treatment Agreement: Documented signed opioid trtmnt agreemnt min once during opioid trtmnt Measure #408: Opioid Therapy Follow-up Evaluation: Patient had f/u eval minimum every 3 months during opioid therapy Measure #317: Preventitive Care & Scrn High Bld Press & F/U: Normal blood pressure, f/u not required Measure #128: Body Mass Index (BMI) Screening & Follow-up: BMI documented ABOVE normal parameters - f/u documented Measure #131: Pain Assessment & Follow-up: Pain positive & plan documented, Follow-up scheduled Measure #431: Unhealthy Alcohol Use Preventative Care & Scrn: Patient not identified as an unhealthy alcohol user PQRS Narrative: Smoking Status Former smoker Do You Want the Pneumonia No Vaccine AT THIS TIME? Narcotic Agreement Date Signed 09/27/18 Blood Pressure 132/96 Pain Intensity [Medial Back] 4 Scale Used Numeric (1 - 10) Hx Alcohol Use (MH) No Home Medications: Ambulatory Orders Tolterodine Tartrate [Detrol LA] 4 mg PO DAILY 05/24/17 ARIPiprazole [Abilify] 5 mg PO QAM 11/04/18 DULoxetine HCL [Cymbalta] 30 mg PO QAM 11/04/18 Diazepam 1 mg PO DAILY 11/04/18 Gabapentin [Neurontin] 100 mg PO HS #30 cap 11/22/18 HYDROcodone/APAP 7.5-325MG [[place] 7.5-325] 1 tab PO Q8H PRN 30 Days #90 tab 11/22/18 HYDROcodone/APAP 7.5-325MG [[place] 7.5-325] 1 tab PO Q8H PRN 30 Days #90 tab 11/22/18 tiZANidine HCL [Zanaflex] 4 mg PO Q8HR PRN #90 tab 11/22/18 Controlled Substance Measures - Controlled Substance Measures Is patient prescribed a controlled substance at discharge?: Yes When asked, does pt state using other controlled substances?: No If prescribed controlled substance>3 days was MAPS reviewed?: Yes If Rx opioid, was Start Talking consent form obtained?: Yes Was information provided regarding opioid addiction?: Yes
== END | disposition home or self-care (01) ==
LOC: PNWHC3 12:25
PROVIDERS: ATTEND Hospitalist
DX: G89.29 Other chronic pain (principal); M47.22 Other spondylosis with radiculopathy, cervical region; M47.816 Spondylosis without myelopathy or radiculopathy, lumbar region; F11.20 Opioid dependence, uncomplicated; Z87.891 Personal history of nicotine dependence; Z98.890 Other specified postprocedural states; Z79.899 Other long term (current) drug therapy
CPT/HCPCS: 99211

== ENCOUNTER → 2019-03-20 | Outpatient (CLI) | payer MEDICARE, OTHER ==
[2019-03-20 14:13] VITALS: BP 115/82; PULSE 108; RESP 18
--- NOTE | 2019-03-20 14:32 | P.PN ---
Subjective Progress Note Date: 03/20/19 Miroslava 52-year-old female presents today for follow-up. On her last visit she reported worsening numbness and tingling and weakness in her arms. She has a history of neck surgery. At that time I ordered an MRI which she had done on March 14. She did not bring the report or the CD with her on today's visit. She reports that her symptoms are still the same and unchanged. She has had no progression of her symptoms. She has no new changes including but not limited to lower extremity weakness, bowel or bladder incontinence. She reports the medications are improving her overall pain. Objective - Vital Signs Vital signs: Vital Signs Temp Pulse 108 H 03/20/19 14:08 Resp 18 03/20/19 14:08 BP 115/82 03/20/19 14:08 Pulse Ox 95 03/20/19 14:08 Intake & Output 03/19/19 03/20/19 03/20/19 18:59 06:59 18:59 Weight 86.183 kg - Exam General: Awake and alert oriented 3 no distress Respiratory exam: No audible wheezing no accessory muscle usage Cardiovascular exam: regular rate, palpable bilateral pulses, no lower extremity edema Abdominal exam: No distention nontender to palpation Cervical spine: Normal alignment, Spurling's positive bilateral. 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 There is weakness in the lumbricals Lumbar spine: Loss of lumbar lordosis, normal alignment, tender to palpation over bilateral paraspinal muscles, facet loading is positive bilaterally. Straight leg raise is negative. Sacroiliac joints: Nontender to palpation, ALFREDO is negative, [place] negative Neuro exam: Normal sensation in bilateral upper extremities, deep tendon reflexes are 1 + bilateral upper extremities. Normal sensation in bilateral lower extremities. Deep tendon reflexes are 2+ in lower extremities Psych exam: Cooperative, appropriate mood Assessment and Plan Assessment: Cervical postlaminectomy syndrome Cervical radiculopathy Chronic opioid dependence Plan: On today's visit she filled out and authorization to release her MRI results from the an outside hospital, when the MRI comes we will review and follow up with her if there is anything that requires immediate attention. We will fax it over to them today. I reviewed her maps and noticed that the patient's on Xanax. She reports she takes Xanax at nighttime reports that she cannot fall asleep without the Xanax. She reports that her Xanax as prescribed from a psychiatrist at [facility]. We will send a letter to them to ask if there is any alternatives to the Xanax. I advised her that using Xanax and opiates can significantly increase the risk of respiratory depression and . She reports she's been on these medications for long time. Ahmet Klein has dispensed Narcan to her at home. I will also take a urine sample today. Will follow up on these things in the next visit. I will give her prescription for 2 months time and have again advised her to avoid using Xanax along with a narcotics due to the increased risk of respiratory depression and
== END | disposition home or self-care (01) ==
LOC: PNWHC3 13:40
PROVIDERS: ATTEND Hospitalist
DX: M96.1 Postlaminectomy syndrome, not elsewhere classified (principal); M54.12 Radiculopathy, cervical region; F11.20 Opioid dependence, uncomplicated
CPT/HCPCS: 80307; G0482; G0463; 99211

== ENCOUNTER → 2019-05-22 | Outpatient (CLI) | payer MEDICARE, OTHER ==
[2019-05-22 13:28] VITALS: BP 130/84; PULSE 123; RESP 20
--- NOTE | 2019-05-22 16:02 | P.PAINPG ---
Subjective Progress Note Date: 05/22/19 This is a 53-year-old female presents today for follow-up. At her last visit, she had been counseled extensively on potential side effects from using opioids and benzodiazepines at the same time including respiratory depression and . She was also asked to bring in the results of her cervical spine MRI. The UDS was also ordered at that time. Today, she reports that she continues to have pain in the right low cervicalhigh thoracic region, not radiating to upper extremities. She reports that this was the same pain as prior to last RFA done in October 2018. She is interested in repeating cervical RFA. She denies numbness and tingling in upper extremities today, which she had endorsed at previous visits, she states this has resolved. She denies new weakness. She currently takes [place] 7.5 mg 3 times a day, this is allowing her to function well. She does not report any side effects. She reports that her psychiatrist prescribes her Xanax for PTSD, and she has been on this for several years and would be unable to function without it. She also reports that she has stopped smoking since October. Review of systems is negative for chest pain, shortness of breath, new onset weakness, numbness/tingling, abdominal pain, malaise, fever, night sweats, chills, homicidal or suicidal ideation, or bowel or bladder incontinence. Objective - Exam Physical exam: Vitals: Reviewed in EMR GENERAL: Well appearing, in no acute distress PSYCH: Mood and affect is appropriate. Awake, alert, and oriented SKIN: Skin color, texture, turgor normal, no rashes or lesions HEENT: Normocephalic, atraumatic. EOM intact CV: No pedal edema RESP: Respirations are unlabored, no audible wheezing GI: Abdomen non-distended MUSCULOSKELETAL: Bilateral upper and lower extremity strength is normal and symmetric. No atrophy or tone abnormalities are noted. Neck: Tenderness to palpation over the cervical paraspinous muscles right side, in the low cervical and upper thoracic region. Spurling negative, Axial Loading Test negative, Coronado's sign negative. No pain with neck flexion, extension, or lateral flexion. No obvious deformity or signs of trauma. Normal cervical lordotic curve and normal cervical spine range of motion Extremities: Peripheral joint ROM is full and pain free without obvious instability or laxity in all four extremities. No edema or skin discolorations noted. Gait: Gait is normal NEUR: Bilateral upper extremity coordination and muscle stretch reflexes are physiologic and symmetric. No loss of sensation is noted. Results: Urine drug strain done at last visit- congruent with patient's medications MRI cervical spine: Done at [facility] on 01/26/2019 shows a small disc herniation at C5-6 and C6-7, with no significant progression or new herniations noted. No significant stenosis noted. Assessment and Plan Assessment: Cervical spondylosis Cervical postlaminectomy syndrome Cervical radiculopathy Chronic opioid dependence Concurrent use of opioids and benzodiazepines Plan: Today, we discussed at length the potential complications from concurrent use of benzodiazepines and narcotics including respiratory depression and . Her Xanax as prescribed by her psychiatrist, who she sees twice a month. She is taking it for PTSD. We had a lengthy discussion regarding weaning of narcotics, and patient is amenable to this. I informed her that we will gradually wean her down and off the narcotics over the next several months. The patient does have Narcan available at home. Prescription written for [place] 7.5 mg 3 times a day when necessary dispense #90. Refill was written for 5 mg 3 times a day when necessary #90. She understands that we will gradually continue to wean this. Refill for Zanaflex 4 mg 3 times a day when necessary with 2 refills written today. Will schedule repeat cervical radiofrequency ablation of the right side at C4-5, C5-6 and C6-7 Follow-up: For above-mentioned procedure and in 2 months for medication management Objective - Vital Signs Vital signs: Vital Signs Temp Pulse 123 H 05/22/19 13:19 Resp 20 05/22/19 13:19 BP 130/84 05/22/19 13:19 Pulse Ox 98 05/22/19 13:19 Intake & Output 05/21/19 05/22/19 05/22/19 18:59 06:59 18:59 Weight 83.915 kg PQRS Measure Charge Sheet Measure #130: Documentation of Current Meds in Medical Chart: Patient's medications documented in chart Measure #226: Tobacco Use: Screen & Cessation Intervention: Pt not a tobacco user Measure #111: Pneumonia Vaccination: Pneumococcal vaccine administered or previously received Measure #47: Advance Care Plan: Advance care planning discussed & documented, pt chose/unable to give Measure #412: Opioid Treatment Agreement: Documented signed opioid trtmnt a greemnt min once during opioid trtmnt Measure #408: Opioid Therapy Follow-up Evaluation: Patient had f/u eval minimum every 3 months during opioid therapy Measure #317: Preventitive Care & Scrn High Bld Press & F/U: Normal blood pressure, f/u not required Measure #128: Body Mass Index (BMI) Screening & Follow-up: BMI documented ABOVE normal parameters - f/u documented Measure #131: Pain Assessment & Follow-up: Pain positive & plan documented, Follow-up scheduled Measure #431: Unhealthy Alcohol Use Preventative Care & Scrn: Patient not identified as an unhealthy alcohol user PQRS Narrative: Smoking Status Former smoker Narcotic Agreement Date Signed 09/27/18 Blood Pressure 130/84 Pain Intensity [Generalized] 8 Scale Used Numeric (1 - 10) Hx Alcohol Use (MH) No Home Medications: Ambulatory Orders Tolterodine Tartrate [Detrol LA] 4 mg PO DAILY 05/24/17 DULoxetine HCL [Cymbalta] 30 mg PO QAM 11/04/18 Diazepam 1 mg PO DAILY 11/04/18 HYDROcodone/APAP 7.5-325MG [[place] 7.5-325] 1 tab PO Q8H PRN 30 Days #90 tab 11/22/18 HYDROcodone/APAP 7.5-325MG [[place] 7.5-325] 1 tab PO Q8H PRN 30 Days #90 tab 11/22/18 tiZANidine HCL [Zanaflex] 4 mg PO Q8HR PRN #90 tab 11/22/18 Controlled Substance Measures - Controlled Substance Measures Is patient prescribed a controlled substance at discharge?: Yes When asked, does pt state using other controlled substances?: Yes If prescribed controlled substance>3 days was MAPS reviewed?: Yes If Rx opioid, was Start Talking consent form obtained?: Yes If opioid is for acute pain is fill amount 7 days or less?: No Was information provided regarding opioid addiction?: Yes
== END | disposition home or self-care (01) ==
LOC: PNWHC3 12:27
PROVIDERS: ATTEND Anesthesiology
DX: M47.22 Other spondylosis with radiculopathy, cervical region (principal); M96.1 Postlaminectomy syndrome, not elsewhere classified; F11.20 Opioid dependence, uncomplicated; Z87.891 Personal history of nicotine dependence; Z98.890 Other specified postprocedural states; Z79.899 Other long term (current) drug therapy
CPT/HCPCS: 99211

== ENCOUNTER 2019-06-20 07:44 | Day surgery (SDC) | payer MEDICARE, OTHER ==
[2019-06-15 12:15] VITALS: BMI 29.9
[~2019-06-20 07:44] MED LIST changes: +LACTATED RINGERS 1,000 ML IV SCH; -SODIUM CHLORIDE 0.9% 500 ML 500 ML IV SCH
[2019-06-20 08:11] VITALS: RESP 16; TEMP 97
[2019-06-20] MEDS ORDERED: LIDOCAINE 1% 20 ML VIAL (10MG/ML) FOR IV START INTRADERMA ONE (08:15)
[2019-06-20] MEDS ORDERED: IV FLUID CONTINUATION 1,000 ML IV ONE (09:12)
[2019-06-20 09:29] VITALS: BP 119/82; PULSE 94
--- NOTE | 2019-06-20 10:51 | P.PCN ---
Date of Procedure: 06/20/19 Procedure(s) Performed: PREOPERATIVE DIAGNOSIS: Cervical spondylosis with Facet Arthropathy without myelopathy. POSTOPERATIVE DIAGNOSIS: Cervical spondylosis with Facet Arthropathy without myelopathy. PROCEDURES: Radiofrequency thermocoagulation, Right C4 , C5 , C6 medial branch with Fluroscopy [place] (fluoroscopy images available at her radiology Department ) ( RFA right C4-5 , C5-6 facet Joint ) ANESTHESIA: Local with Ropivacaine 0.5 % , moderate sedation with fentanyl 200 micrograms and Versed.2 mg EBL: Minimal PROCEDURE INDICATION: The patient with neck pain secondary to cervical arthropathy who had more than 50% relief of her pain with previous diagnostic cervical medial branch block. PROCEDURE DESCRIPTION / TECHNIQUE: The patient was seen and identified in the preoperative area. Risks, benefits, complications, and alternatives were d iscussed with the patient, the patient agreed to proceed with the procedure and signed the consent. IV was started. Vital signs remained stable throughout the procedure. Patient was taken to the OR and time out was completed. The patient was placed in the prone position on the procedure table. A pillow was placed under the patients chest to increase the cervical interlaminar space. The cervical area was prepped and draped in the usual sterile fashion. Critical pause was taken. Vital signs were closely monitored during the procedure. Conscious sedation was used during the procedure to decrease patients anxiety. Using cross-table lateral fluoroscopy, the centroid of the trapezoid of right C4, C5, and C6 were identified, marked, and localized with 1% lidocaine. Subsequently, a 20 [id number] radiofrequency cannula with a 10-mm active tip was advanced guided by fluoroscopy to the centroid of the trapezoid of right C4, C5, and C6 . Needle tip position was confirmed at the centroid of the trapezoids of right C4, C5, and C6 with anteroposterior fluoroscopy. Each site then underwent sensory testing at 50 Hz and 0 to 1 volt and motor testing at 2 Hz and 0 to 3 volt with local stimulation, but no radicular symptoms down the arm. Thereafter right C4,C5 and C6 sites underwent radiofrequency thermocoagulation at 80 degrees celsius for 90 seconds after injecting 0.5 ml of PF Ropivacaine 0.5 %. After thermocoagulation, 1 ml of the block solution containing depo-medrol 40 mg and 5 mL of preservative-free normal saline was injected at the right C4, C5, and C6 levels after negative aspiration of CSF and blood and with no paresthesias. Cannulas were retracted while injecting lidocaine 1% until the needle is out. Skin was cleansed and bandages were applied. COMPLICATIONS: No acute complications. DISPOSITION / PLANS: The patient was placed in a supine position and transferred to the recovery area in a stable condition for observation and was discharged from the recovery room after meeting discharge criteria. Home discharge instructions given to the patient by the staff. The patient was reexamined prior to discharge. The patient will schedule a follow up in the [facility] in 2-4 weeks.
--- NOTE | 2019-06-20 11:08 | FL ---
EXAMINATION TYPE: FL guided pain mgmt statistic DATE OF EXAM: 06/20/2019 CLINICAL HISTORY: Neck pain. TECHNIQUE: Fluoroscopy. COMPARISON: None. FINDINGS: Fluoroscopic guidance was provided during pain relief procedure performed by Dr. Phan . A total of 14 seconds of fluoroscopic time was utilized during the procedure and two spot images a re acquired. Images acquired shows needle localization at multiple levels of the cervical spine. IMPRESSION: As Above.
== END 2019-06-20 09:43 | disposition home or self-care (01) ==
LOC: ORPAIN 07:44
PROVIDERS: ATTEND Specialist
DX: M47.812 Spondylosis without myelopathy or radiculopathy, cervical region (principal)
CPT/HCPCS: 64633; 64634; J2250; J1030; J3010; 99152; 99153

== ENCOUNTER → 2019-07-26 | Outpatient (CLI) | payer MEDICARE, OTHER ==
[2019-07-26 12:45] VITALS: BP 132/90; PULSE 112; RESP 16
--- NOTE | 2019-07-27 14:29 | P.PAINPG ---
Subjective Progress Note Date: 07/26/19 This is a 53-year-old female presents today for follow-up. Today, she returns after undergoing right-sided C4, 5, 6 radiofrequency ablation on 06/20/2019. She reports that this procedure gave her significant benefit. She denies numbness and tingling in upper extremities , denies new weakness. She currently takes [place] 5 mg 3 times a day, this is allowing her to function well, although she believes she has slightly more pain since reducing the dose from 7.5mg. She does not report any side effects. She reports that her psychiatrist prescribes her Xanax for PTSD, and she has been on this for several years. We had an extensive discussion regarding the concurrent use of opioids and benzodiazepines. She has agreed to wean her benzodiazepines with her psychiatrist. I informed her that if she is unable to wean, and is still on Xanax at her next visit in 2 months, we will gradually wean her opioids. She expressed understanding. She also reports that she has stopped smoking since October. Today, she has several different pain complaints. She complains of pain at her bra line which stays in the middle of her back, does not radiate this has been present for a long time. She also complains of numbness in her left pinky and ring finger, only present when she is laying down. I offered her an EMG, however she declined this due to significant panic attack on prior EMG. She also complains of pain in her tailbone. This does not radiate. Review of systems is negative for shortness of breath, new onset weakness, numbness/tingling, abdominal pain, malaise, fever, night sweats, chills, homicidal or suicidal ideation, or bowel incontinence. She does endorse chronic bladder incontinence as well as chest pain with her panic attacks. Objective - Exam Physical exam: Vitals: Reviewed in EMR GENERAL: Well appearing, in no acute distress PSYCH: Mood and affect is appropriate. Awake, alert, and oriented SKIN: Skin color, texture, turgor normal, no rashes or lesions HEENT: Normocephalic, atraumatic. EOM intact CV: No pedal edema RESP: Respirations are unlabored, no audible wheezing GI: Abdomen non-distended MUSCULOSKELETAL: Bilateral upper and lower extremity strength is normal and symmetric. No atrophy or tone abnormalities are noted. Spine: Tenderness to palpation diffusely over the cervical, thoracic, lumbar spine and bilateral paraspinal muscles throughout. Spurling negative, Axial Loading Test negative, Coronado's sign negative. No pain with neck flexion, extension, or lateral flexion. No obvious deformity or signs of trauma. Normal cervical lordotic curve and normal cervical spine range of motion Extremities: Peripheral joint ROM is full and pain free without obvious instability or laxity in all four extremities. No edema or skin discolorations noted. Gait: Gait is normal NEUR: Bilateral upper and lower extremity coordination and muscle stretch reflexes are physiologic and symmetric. No loss of sensation is noted. Results: Urine drug strain done at last visit- congruent with patient's medications MRI cervical spine: Done at [facility] on 01/26/2019 shows a small disc herniation at C5-6 and C6-7, with no significant progression or new herniations noted. No significant stenosis noted. MRI thoracic spine done on 02/21/2019 shows small posterior disc bulges at T6-7, T7-8 without compromise of the spinal canal. Subtle thinning of the mid thoracic spinal cord and increased area of signal within the cord at T4 level- possibly a small syrinx. no acute changes Assessment and Plan Assessment: Cervical spondylosis Cervical postlaminectomy syndrome Cervical radiculopathy Tonic pain syndrome Chronic opioid dependence Concurrent use of opioids and benzodiazepines Plan: Today, we discussed at length the potential complications from concurrent use of benzodiazepines and narcotics including respiratory depression and . Her Xanax as prescribed by her psychiatrist, who she sees twice a month. She is taking it for PTSD. She has agreed to wean her benzodiazepines with her psychiatrist. I informed her that if she is unable to wean, and is still on Xanax at her next visit in 2 months, we will gradually wean her opioids. She expressed understanding. The patient does have Narcan available at home. We discussed appropriate storage of controlled medications, and the patient stores her medications appropriately, and noone else has access to her medications. Prescription written for 5 mg 3 times a day when necessary #90 with one refill Refill for Zanaflex 4 mg 3 times a day when necessary with 2 refills written today. No Procedures indicated at this time I did offer an upper extremity EMG, which the patient declined due to panic attack at prior EMG Follow-up: in 2 months for medication management PQRS Measure Charge Sheet Measure #130: Documentation of Current Meds in Medical Chart: Patient's medications documented in chart Measure #226: Tobacco Use: Screen & Cessation Intervention: Pt not a tobacco user Measure #111: Pneumonia Vaccination: Pneumococcal vaccine administered or prev iously received Measure #47: Advance Care Plan: Advance care planning discussed & documented, pt chose/unable to give Measure #412: Opioid Treatment Agreement: Documented signed opioid trtmnt agreemnt min once during opioid trtmnt Measure #408: Opioid Therapy Follow-up Evaluation: Patient had f/u eval minimum every 3 months during opioid therapy Measure #317: Preventitive Care & Scrn High Bld Press & F/U: Normal blood pressure, f/u not required Measure #128: Body Mass Index (BMI) Screening & Follow-up: BMI documented within normal parameters Measure #131: Pain Assessment & Follow-up: Pain positive & plan documented, Follow-up scheduled Measure #431: Unhealthy Alcohol Use Preventative Care & Scrn: Patient not identified as an unhealthy alcohol user PQRS Narrative: Smoking Status Former smoker Narcotic Agreement Date Signed 09/27/18 Pain Intensity [Upper Back] 8 Scale Used Numeric (1 - 10) Hx Alcohol Use (MH) No Home Medications: Ambulatory Orders Tolterodine Tartrate [Detrol LA] 4 mg PO DAILY 05/24/17 DULoxetine HCL [Cymbalta] 30 mg PO QAM 11/04/18 tiZANidine HCL [Zanaflex] 4 mg PO Q8HR PRN #90 tab 11/22/18 buPROPion [Wellbutrin] 75 mg PO DAILY 05/26/19 HYDROcodone/APAP 5-325MG [[place] 5-325] 1 tab PO Q8H PRN 07/13/19 ALPRAZolam [Xanax] 1 tab PO BID PRN 07/26/19 Controlled Substance Measures - Controlled Substance Measures Is patient prescribed a controlled substance at discharge?: Yes When asked, does pt state using other controlled substances?: Yes If prescribed controlled substance>3 days was MAPS reviewed?: Yes If Rx opioid, was Start Talking consent form obtained?: Yes If opioid is for acute pain is fill amount 7 days or less?: No Was information provided regarding opioid addiction?: Yes
== END | disposition home or self-care (01) ==
LOC: PNWHC3 12:11
PROVIDERS: ATTEND Anesthesiology
DX: M47.22 Other spondylosis with radiculopathy, cervical region (principal); M96.1 Postlaminectomy syndrome, not elsewhere classified; R52 Pain, unspecified; F11.20 Opioid dependence, uncomplicated; Z87.891 Personal history of nicotine dependence; Z79.899 Other long term (current) drug therapy
CPT/HCPCS: 99211

== ENCOUNTER → 2019-09-28 | Outpatient (CLI) | payer MEDICARE, OTHER ==
[2019-09-28 11:57] VITALS: BP 131/94; PULSE 88
--- NOTE | 2019-09-28 16:29 | P.PAINPG ---
Subjective Progress Note Date: 09/28/19 This is a 53-year-old female presents today for follow-up. Today, she reports right-sided low back pain, which has been present for about 3 days, described as a burning, pressure. Pain is worse with walking, sitting and better with laying flat, heat, TENS. She recently underwent right-sided cervical RFA, and reports good benefit from this. She denies numbness and tingling in upper extremities , denies new weakness. She currently takes Hartfield 5 mg 3 times a day, this is allowing her to function well, She does not report any side effects. She reports that her psychiatrist has stopped prescribing her Xanax , she reports that she has about one week supply left. maps report shows Xanax last filled more than one month ago, on 08/26/2019. In the past, we have had an extensive discussion regarding the concurrent use of opioids and benzodiazepines. She has agreed to wean her benzodiazepines with her psychiatrist. I informed her that if she is unable to wean, and is still on Xanax at her next visit in 2 months, we will gradually wean her opioids. She expressed understanding. she has also recently moved into a new apartment, she is happy she has her own place, although she is struggling financially.she has cut down her smoking, currently smokes about 5 cigarettes a day. Review of systems is negative for shortness of breath, new onset weakness, numbness/tingling, abdominal pain, malaise, fever, night sweats, chills, homicidal or suicidal ideation, or bowel incontinence. She does endorse chronic bladder incontinence as well as chest pain with her panic attacks. Objective - Exam Physical exam: Vitals: Reviewed in EMR GENERAL: Well appearing, in no acute distress PSYCH: Mood and affect is appropriate. Awake, alert, and oriented SKIN: Skin color, texture, turgor normal, no rashes or lesions HEENT: Normocephalic, atraumatic. EOM intact CV: No pedal edema RESP: Respirations are unlabored, no audible wheezing GI: Abdomen non-distended MUSCULOSKELETAL: Bilateral upper and lower extremity strength is normal and symmetric. No atrophy or tone abnormalities are noted. Spine: no tenderness to palpation of cervical spine or paraspinal musculature. Spurling negative, Axial Loading Test negative, Coronado's sign negative. No pain with neck flexion, extension, or lateral flexion. No obvious deformity or signs of trauma. Normal cervical lordotic curve and normal cervical spine range of motion Extremities: Peripheral joint ROM is full and pain free without obvious instability or laxity in all four extremities. No edema or skin discolorations noted. SI joint: Right sided Scott test positive, right Aidee's finger positive, right sacral thrust positive Gait: Gait is antalgic NEUR: Bilateral upper and lower extremity coordination and muscle stretch reflexes are physiologic and symmetric. No loss of sensation is noted. Results: Urine drug strain done at last visit- congruent with patient's medications MRI cervical spine: Done at [facility] on 01/26/2019 shows a small disc herniation at C5-6 and C6-7, with no significant progression or new herniations noted. No significant stenosis noted. MRI thoracic spine done on 02/21/2019 shows small posterior disc bulges at T6-7, T7-8 without compromise of the spinal canal. Subtle thinning of the mid thoracic spinal cord and increased area of signal within the cord at T4 level- possibly a small syrinx. no acute changes Assessment and Plan Assessment: Cervical spondylosis Cervical postlaminectomy syndrome Cervical radiculopathy right sacroiliac joint dysfunction chronic pain syndrome Chronic opioid dependence Concurrent use of opioids and benzodiazepines Plan: over the last few visits, we have discussed at length the potential complications from concurrent use of benzodiazepines and narcotics including respiratory depression and . reportedly, she is no longer receiving senna neck from her psychiatrists, last prescription was filled on 08/26/2019 per maps report. Per patient, she has about one week's supply left. I informed her that if she is unable to wean, and is still on Xanax at her next visit in 2 months, we will gradually wean her opioids. She expressed understanding. The patient does have Narcan available at home. Prescription written for Hartfield 5 mg 3 times a day when necessary #90 with one refill patient has been experiencing restless legs syndrome, that she attributes to Zanaflex.I will switch her from Zanaflex to Flexeril today. Prescription also given for ibuprofen 800 mg 3 times a day when necessary. I did offer a right-sided sacroiliac joint injection, patient will call us if she would like this procedure performed. 3 minutes was spent counseling the patient on the importance of smoking cessation as it relates to overall health and chronic pain Follow-up: in 2 months for medication management or earlier for procedure PQRS Measure Charge Sheet Measure #130: Documentation of Current Meds in Medical Chart: Patient's medications documented in chart Measure #226: Tobacco Use: Screen & Cessation Intervention: Pt screening for tobacco use and intervention given. Measure #111: Pneumonia Vaccination: Pneumococcal vaccine administered or previously received Measure #47: Advance Care Plan: Advance care planning discussed & documented, pt chose/unable to give Measure #412: Opioid Treatment Agreement: Documented signed opioid trtmnt agreemnt min once during opioid trtmnt Measure #408: Opioid Therapy Follow-up Evaluation: Patient had f/u eval minimum every 3 months during opioid therapy Measure #317: Preventitive Care & Scrn High Bld Press & F/U: Normal blood pressure, f/u not required Measure #128: Body Mass Index (BMI) Screening & Follow-up: BMI documented within normal parameters Measure #131: Pain Assessment & Follow-up: Pain positive & plan documented, Follow-up scheduled Measure #431: Unhealthy Alcohol Use Preventative Care & Scrn: Patient not identified as an unhealthy alcohol user PQRS Measure Charge Sheet PQRS Narrative: Smoking Status Former smoker Narcotic Agreement Date Signed 09/27/18 Pain Intensity [Medial Back] 5 Scale Used Numeric (1 - 10) Hx Alcohol Use (MH) No Home Medications: Ambulatory Orders Tolterodine Tartrate [Detrol LA] 4 mg PO DAILY 05/24/17 DULoxetine HCL [Cymbalta] 30 mg PO QAM 11/04/18 tiZANidine HCL [Zanaflex] 4 mg PO Q8HR PRN #90 tab 11/22/18 buPROPion [Wellbutrin] 75 mg PO DAILY 05/26/19 HYDROcodone/APAP 5-325MG [Hartfield 5-325] 1 tab PO Q8H PRN 07/13/19 Ibuprofen 800 mg PO TID PRN 09/28/19 Controlled Substance Measures - Controlled Substance Measures Is patient prescribed a controlled substance at discharge?: Yes When asked, does pt state using other controlled substances?: No If prescribed controlled substance>3 days was MAPS reviewed?: Yes If Rx opioid, was Start Talking consent form obtained?: Yes If opioid is for acute pain is fill amount 7 days or less?: No Was information provided regarding opioid addiction?: Yes
== END | disposition home or self-care (01) ==
LOC: PNWHC3 11:21
PROVIDERS: ATTEND Anesthesiology
DX: M47.22 Other spondylosis with radiculopathy, cervical region (principal); M96.1 Postlaminectomy syndrome, not elsewhere classified; M46.1 Sacroiliitis, not elsewhere classified; G89.4 Chronic pain syndrome; F11.20 Opioid dependence, uncomplicated; F19.90 Other psychoactive substance use, unspecified, uncomplicated; Z87.891 Personal history of nicotine dependence; Z98.890 Other specified postprocedural states; Z79.899 Other long term (current) drug therapy
CPT/HCPCS: 99211

== ENCOUNTER → 2019-11-23 | Outpatient (CLI) | payer MEDICARE, OTHER ==
[2019-11-23 12:41] VITALS: BP 116/84; PULSE 94; RESP 18
--- NOTE | 2019-11-27 10:36 | P.PAINPG ---
Subjective Progress Note Date: 11/23/19 This is a 53-year-old female presents today for follow-up. Today, she reports mid back pain, extending from her bra strap to parent line, which has been present daily for 8 years, worse with standing and better with medications, injections, stretching. She has undergone prior trigger point injections to this area with good relief. She would like repeat injections if possible. She currently takes Tilden 5 mg 3 times a day, this is allowing her to function well, She does not report any side effects. She reports that her psychiatrist has stopped prescribing her Xanax , and she has weaned off it. maps report shows Xanax last filled on 08/26/2019. In the past, we have had an extensive discussion regarding the concurrent use of opioids and benzodiazepines, and she understands that if she restart Xanax, we will gradually wean her opioids. she has also recently moved into a new apartment, she is happy she has her own place, she is happy to be single. she has cut down her smoking, and is continuing to wean. Review of systems is negative for shortness of breath, new onset weakness, numbness/tingling, abdominal pain, malaise, fever, night sweats, chills, homicidal or suicidal ideation, or bowel incontinence. She does endorse chronic bladder incontinence as well as chest pain with her panic attacks. Objective - Exam Physical exam: Vitals: Reviewed in EMR GENERAL: Well appearing, in no acute distress PSYCH: Mood and affect is appropriate. Awake, alert, and oriented SKIN: Skin color, texture, turgor normal, no rashes or lesions HEENT: Normocephalic, atraumatic. EOM intact CV: No pedal edema RESP: Respirations are unlabored, no audible wheezing GI: Abdomen non-distended MUSCULOSKELETAL: Bilateral upper and lower extremity strength is normal and symmetric. No atrophy or tone abnormalities are noted. Spine: Tenderness to palpation along the thoracic and lumbar paraspinal musculature, trigger points palpable Extremities: Peripheral joint ROM is full and pain free without obvious instability or laxity in all four extremities. No edema or skin discolorations noted. Gait: Gait is slow NEUR: Bilateral upper and lower extremity coordination and muscle stretch reflexes are physiologic and symmetric. No loss of sensation is noted. Results: MRI cervical spine: Done at [facility] on 01/26/2019 shows a small disc herniation at C5-6 and C6-7, with no significant progression or new herniations noted. No significant stenosis noted. MRI thoracic spine done on 02/21/2019 shows small posterior disc bulges at T6-7, T7-8 without compromise of the spinal canal. Subtle thinning of the mid thoracic spinal cord and increased area of signal within the cord at T4 level- possibly a small syrinx. no acute changes Assessment and Plan Assessment: Cervical spondylosis Cervical postlaminectomy syndrome Cervical radiculopathy right sacroiliac joint dysfunction chronic pain syndrome Chronic opioid dependence Concurrent use of opioids and benzodiazepines in the past, recently weaned off benzodiazepines Plan: Prescription written for Tilden 5 mg 3 times a day when necessary #90 with one refill. The patient does have Narcan available at home. Prescription also given for Flexeril, ibuprofen 800 mg 3 times a day when necessary. We will schedule bilateral thoracic and lumbar paraspinal trigger point injections. 3 minutes was spent counseling the patient on the importance of smoking cessation as it relates to overall health and chronic pain Follow-up: in 2 months for medication management and at next available for procedure PQRS Measure Charge Sheet Measure #130: Documentation of Current Meds in Medical Chart: Patient's medications documented in chart Measure #226: Tobacco Use: Screen & Cessation Intervention: Pt screening for tobacco use and intervention given. Measure #111: Pneumonia Vaccination: Pneumococcal vaccine administered or previously received Measure #47: Advance Care Plan: Advance care planning discussed & documented, pt chose/unable to give Measure #412: Opioid Treatment Agreement: Documented signed opioid trtmnt agreemnt min once during opioid trtmnt Measure #408: Opioid Therapy Follow-up Evaluation: Patient had f/u eval minimum every 3 months during opioid therapy Measure #317: Preventitive Care & Scrn High Bld Press & F/U: Normal blood pressure, f/u not required Measure #128: Body Mass Index (BMI) Screening & Follow-up: BMI documented within normal parameters Measure #131: Pain Assessment & Follow-up: Pain positive & plan documented, Follow-up scheduled Measure #431: Unhealthy Alcohol Use Preventative Care & Scrn: Patient not identified as an unhealthy alcohol user PQRS Measure Charge Sheet PQRS Narrative: Smoking Status Former smoker Narcotic Agreement Date Signed 07/26/19 Hx Alcohol Use (MH) No Home Medications: Ambulatory Orders Tolterodine Tartrate [Detrol LA] 4 mg PO DAILY 05/24/17 DULoxetine HCL [Cymbalta] 30 mg PO QAM 11/04/18 tiZANidine HCL [Zanaflex] 4 mg PO Q8HR PRN #90 tab 11/22/18 buPROPion [Wellbutrin] 75 mg PO DAILY 05/26/19 HYDROcodone/APAP 5-325MG [Tilden 5-325] 1 tab PO Q8H PRN 07/13/19 Ibuprofen 800 mg PO TID PRN 09/28/19 Controlled Substance Measures - Controlled Substance Measures Is patient prescribed a controlled substance at discharge?: Yes When asked, does pt state using other controlled substances?: No If prescribed controlled substance>3 days was MAPS reviewed?: Yes If Rx opioid, was Start Talking consent form obtained?: Yes If opioid is for acute pain is fill amount 7 days or less?: No Was information provided regarding opioid addiction?: Yes
== END | disposition home or self-care (01) ==
LOC: PNWHC3 12:20
PROVIDERS: ATTEND Anesthesiology
DX: M47.22 Other spondylosis with radiculopathy, cervical region (principal); M96.1 Postlaminectomy syndrome, not elsewhere classified; M53.3 Sacrococcygeal disorders, not elsewhere classified; G89.4 Chronic pain syndrome; F11.20 Opioid dependence, uncomplicated; Z51.81 Encounter for therapeutic drug level monitoring; Z87.891 Personal history of nicotine dependence; Z79.899 Other long term (current) drug therapy
CPT/HCPCS: 80307; G0482; G0463; 99211